=== PATIENT | male | born 1990 | race Caucasian/White ===

== ENCOUNTER 2020-04-04 08:28 | Outpatient (CLI) | payer OTHER, SELFPAY ==
--- NOTE | 2020-04-04 08:15 | XRR_ITS ---
PROCEDURE INFORMATION: Exam: XR Abdomen, 1 View Exam date and time: 04/04/2020 8:50 AM Age: 30 years old Clinical indication: Condition or disease; Kidney or ureter condition; Calculus (stone) in kidney; Additional info: Ureteral stone f/u TECHNIQUE: Imaging protocol: XR of the abdomen. Views: Frontal supine view of the abdomen. 1 View. COMPARISON: CR XR KUB [id number] 08/22/2019 10:29 AM FINDINGS: Gastrointestinal tract: The bowel gas pattern is nonspecific. Air filled large bowel including distal rectal gas. Organs: No calcifications are seen overlying the renal outlines or the expected course of the right or left ureters. No suspicious calcifications within the pelvis. Bones/joints: Unremarkable. XR/XR KUB [id number] IMPRESSION: The bowel gas pattern is nonspecific. Air filled large bowel including distal rectal gas.
== END 2020-04-04 08:29 | disposition home or self-care (01) ==
LOC: RAD 08:33
PROVIDERS: Visit Provider Urology
DX: N20.1 Calculus of ureter (principal)
CPT/HCPCS: 74018; 81001

== ENCOUNTER → 2020-10-15 11:26 | Outpatient (BNVA) | payer OTHER, SELFPAY | PROVIDERS: Visit Provider Nurse Practitioner Family | DX: Z20.828 Contact with and (suspected) exposure to other viral communicable diseases (principal) | CPT/HCPCS: 87635 ==

== ENCOUNTER → 2020-11-20 12:07 | Outpatient (BNVA) | payer OTHER, SELFPAY | PROVIDERS: Visit Provider Nurse Practitioner Family | DX: Z20.822 Contact with and (suspected) exposure to COVID-19 (principal); J06.9 Acute upper respiratory infection, unspecified | CPT/HCPCS: 85025; 87071; 87400; 87635; 87880 ==

== ENCOUNTER 2021-01-16 08:12 | Emergency (ER) | payer OTHER, SELFPAY ==
[2021-01-16 08:21] VITALS: BP 133/76; PULSE 86; RESP 15; TEMP 37.1; O2SAT 100; BMI 33.6
--- NOTE | 2021-01-16 08:46 | ED_ITS ---
Documented by User: BRANDON Pendleton 01/17/21 07:08 HPI - Abdominal Pain General: Chief Complaint: Abdominal Pain Stated Complaint: SEVERE AB PAIN Time Seen by Provider: 01/16/21 08:15 History of Present Illness: HPI narrative: Patient is a 31-year-old male comes to the ED with abdominal pain. Past medical history of kidney stone and diverticulitis. Patient says left lower quadrant abdominal pain started this morning. He currently rates the pain a 5 out of 10 and he explains it as being constant with waves of more severe pain. Patient says this is different than his past diverticulitis pains because it is in the left lower quadrant and not in the right lower quadrant like in the past. Patient has not taken anything for pain today. Denies fever, chills, chest pain, shortness of breath, nausea/vomiting, diarrhea, constipation, blood in the stool, hematuria or dysuria. Patient did state that he had a colonoscopy done within the last year and said they did not see any signs of cancer. Associated Symptoms: Denies chills, constipation, diarrhea, dysuria, fever(s), hematochezia, hematuria, nausea and vomiting Review of Systems Const: Denies: fever(s), chills or fatigue Eyes: Denies: change in vision or eye discomfort ENMT: Denies: throat pain, odynophagia, nasal discharge or nasal congestion Card: Denies: chest pain, palpitations, edema, swelling of feet/ankles, dyspnea on exertion or orthopnea Resp: Denies: dyspnea, productive cough or non-productive cough GI: Reports: abdominal pain (LLQ); Denies: nausea, vomiting, diarrhea, constipation or hematochezia : Denies: flank pain, difficulty urinating, dysuria or hematuria Musc: Denies: neck pain, back pain or extremity swelling Skin/Breast: Denies: rash or new lesions Neuro: Denies: headache(s), numbness in extremities or weakness in extremities PFSH ED PFSH: Medical History Calcium urolithiasis Diverticular disease Ureteral stone Family History Mother Diabetes Other Cancer Social History Smoking and tobacco status: current every day smoker Alcohol intake: current Alcohol intake frequency: few times a month Adopted: No Caregiver/support person: No Lives independently: No Marital status: Current occupational status: employed History of recent travel: No Current gender identity: Male Physical Exam Const: COMMON NORMALS: no acute distress, patient oriented x3, healthy appearing and alert GENERAL APPEARANCE: cooperative and comfortable HENMT: COMMON NORMALS: normocephalic HEAD & SCALP: normocephalic MOUTH: Normal oral and palatal mucosa present THROAT: posterior oropharynx normal and uvula midline Eye: COMMON NORMALS: Equal, round and reactive pupils present PUPIL: Yes Equal, round and reactive pupils present Neck/C-Spine: COMMON NORMALS: supple GENERAL: Yes normal visual inspection Resp: COMMON NORMALS: normal respiratory effort, No retractions, No use of accessory muscles and clear to auscultation bilaterally AUSCULTATION: clear to auscultation bilaterally Cardio: COMMON NORMALS: regular rate, regular rhythm, S1 normal heart sound present, S2 normal heart sound present, No gallops present (Cardio), No clicks present (Cardio), No murmurs present (Cardio) and Peripheral pulses 2+ throughout RATE: regular rate RHYTHM: regular rhythm HEART SOUNDS: S1 normal heart sound present and S2 normal heart sound present PERIPHERAL PULSES: Peripheral pulses 2+ throughout GI: COMMON NORMALS: Normal to inspection, nondistended, normoactive bowel sounds present, Soft to palpation and no masses PALPATION: Yes Soft to palpation and Yes Tenderness to palpation present (GI) Details: LLQ : COMMON NORMALS: Yes no CVA tenderness BLADDER/KIDNEY EXAM: Yes no CVA tenderness Back/Pelvis: COMMON NORMALS: no CVA tenderness Extremity: COMMON NORMALS: normal to inspection Neuro: COMMON NORMALS: patient oriented x3 SENSORIUM/ORIENTATION: Yes alert GAIT: Yes Normal gait present Skin: GENERAL SKIN EXAM: dry skin Course Vital Signs: Vital signs: Vital Signs Temperature 98.7 F 01/16/21 08:21 Pulse Rate 78 01/16/21 11:41 Respiratory Rate 18 01/16/21 11:41 Blood Pressure 112/80 01/16/21 11:41 Pulse Oximetry 99 01/16/21 11:41 MDM - Abdominal Pain Lab Data: Attestation: I reviewed the patient's lab results. Labs: Lab Results 0301/16/21 01/16/21 Range/Units 09:15 09:15 09:15 WBC 12.3 H (4.0-10.0) 10^3/ uL RBC 5.15 (4.1-5.3) 10^6/u L Hgb 16.0 (11.7-16.6) g/dL Hct 47.3 (42.0-52.0) % MCV 91.8 (80-94) fL MCH 31.1 (28.0-34.0) pg MCHC 33.8 (30.0-36.0) g/dL RDW 13.1 (12.1-15.1) % Plt Count 185 (130-400) 10^3/c mm MPV 10.4 (7.4-10.4) fL Neut % (Auto) 83.7 % Lymph % (Auto) 7.3 % [place] % (Auto) 6.6 % Eos % (Auto) 2.0 % Baso % (Auto) 0.2 % Neut # (Auto) 10.27 H (1.8-7.7) 10^3/u L Lymph # (Auto) 0.9 (0.8-4.8) 10^3/u L [place] # (Auto) 0.8 (0.2-0.9) 10^3/u L Eos # (Auto) 0.3 (0.0-0.8) 10^3/u L Baso # (Auto) 0.0 (0.0-0.1) 10^3/u L Nucleated RBC % (a uto) 0 % Nucleated RBCs # 0.0 /100WBC Sodium 138 (136-145) mmol/L Potassium 4.0 (3.5-5.1) mmol/L Chloride 104 (98-107) mmol/L Carbon Dioxide 25 (22-29) mmol/L Anion Gap 13.0 (5-19) BUN 16 (6-20) mg/dL Creatinine 0.8 (0.7-1.2) mg/dL GFR Calculation 111.3 (90-130) mL/min Glucose 87 (65-115) mg/dL Calculated Osmolal ity 287 (285-295) mOsm/k g Calcium 9.3 (8.5-10.5) mg/dL Total Bilirubin 0.6 (0.15-1.2) mg/dL AST 20 (0-40) U/L ALT 20 (0-41) U/L Alkaline Phosphata se 68 (40-130) IU/L Total Protein 7.9 (6.6-8.7) g/dL Albumin 4.5 (3.5-5.2) g/dL Globulin 3.4 (1.3-4.6) g/dL Lipase 28 (13-60) U/L Urine Color Straw (Yellow) Urine Appearance Clear (CLEAR) Urine pH 7 (5-7) Ur Specific Gravit y 1.010 (1.005-1.030) Urine Protein Neg (Negative) Urine Glucose (UA) Norm (Normal) Urine Ketones Negative (Negative) Urine Blood Neg (Negative) Urine Nitrate Negative (Negative) Urine Bilirubin Neg (Negative) Urine Urobilinogen Norm (Negative) mg/dL Ur Leukocyte Natasha ase Negative (Negative) Urine RBC None (0-2) /hpf Urine WBC None (0-5) /hpf Ur Squamous Epith Cells 0-4 H (0-5) /hpf Amorphous Sediment Not Reportable Urine Bacteria Trace (NONE) /hpf Imaging Data ^: CT Abd/Pel: Attestation: I personally reviewed and interpreted this imaging study as follows: Radiologist's impression: [place] [address] CT Scan Report Signed Patient: Brad Perez Unit #: [id number] : 1990 Age/Sex: 31 / M ADM Date: 01/16/21 Loc: ER Room/Bed: Attending Dr: Ordering Provider/Ordering MD: Michael Martinez Date of Service: 01/16/21 Procedure(s): CT abdomen pelvis w con* [id number] Accession Number(s): [id number] Report Number: [id number] WS: [id number] CT ABDOMEN AND PELVIS WITH CONTRAST HISTORY: LLQ pain TECHNIQUE: Imaging performed of the abdomen and pelvis with IV contrast. Single phase imaging of the abdomen. Coronal and sagittal reformats are submitted. All CT scans at [facility] use at least one of these dose optimization techniques: automated exposure control; mA and/or kV adjustment per patient size (includes targeted exams where dose is matched to clinical indication); or iterative reconstruction. IV CONTRAST: Omnipaque 300; 95 mL IV. Oral contrast: No DLP: 1981.38 mGy.cm COMPARISON: 08/06/2019 Lower thorax: Benign granuloma LEFT lower lobe. Heart is normal size. No hiatal hernia. Liver/biliary system: Normal size with no intrahepatic dilatation. Gallbladder: Normal. No gallstones or wall thickening. No pericholecystic fluid. Pancreas: Normal. Spleen: Spleen is slightly enlarged at 14.5 cm. Minimal increase in size since the prior CT. Adrenal glands: Normal. Right kidney: Normal. Left kidney: Normal. Aorta: Normal. Lymphadenopathy: There are several small retroperitoneal, shoddy type lymph nodes. Lymph nodes are much less than 1 cm. Free fluid: Small amount of free fluid in the pelvis. GI tract: Markedly abnormal appearance of the sigmoid colon. Over a length of 10 cm there is severe wall thickening and narrowing of the lumen with numerous diverticula. Areas of decreased attenuation in the peripheral enhancement within the wall of the sigmoid suggests developing abscesses within the wall. Phlegmonous development measures 2.4 x 1.6 cm. There are a few adjacent small lymph nodes and pericolonic infiltration into the fat. No free air. Abdominal wall: Unremarkable abdominal wall. No hernia. Pelvis: Small amount of free fluid in the pelvis. Bladder is well distended. Bones: Unremarkable. CT/CT abdomen pelvis w con* [id number] IMPRESSION: 1. Markedly abnormal appearance to 10 cm of the sigmoid. Progression of luminal narrowing, wall thickening and diverticular disease. This may be case of acute diverticulitis superimposed on chronic changes but infiltrating underlying neoplasm is also very likely if this has not been excluded. Severe wall thickening with phlegmonous changes suspicious for developing abscesses in the wall. At this time there is no drainable collection. Underlying colonic needs to be excluded. 2. Small lymph nodes and pericolonic fat stranding may be due to infection or neoplasm. 3. Negative adrenal glands. 4. No liver abnormality. 5. Minimal enlargement of the spleen. 6. Shoddy retroperitoneal lymph nodes. Notified BRANDON Pendleton at 01/16/2021 9:58 AM. Dictated By: Shira Andersen DO Signed By: Shira Andersen DO Signed Date/Time: 01/16/21 1002 DD/ 0952 Discharge Plan Discharge Patient Disposition: Left Against Medical Advice Clinical Impression: Abscess of sigmoid colon due to diverticulitis Condition: Stable Prescriptions: New Augmentin 875-125 mg tablet 1 tab PO BID Qty: 20 RF: 0 No Action famotidine [Pepcid AC] 20 mg tablet 20 mg PO DAILY PRN (Reason: Heartburn) RF: 0 Headache Relief ([id number]) 250-250-65 mg tablet 1 tab PO Q6H PRN (Reason: Headache) RF: 0 Discharge Orders: Discharge ED (Routine); Ordered 01/16/21 Ordered By: Charles Coronado Activity Restrictions/Additional Instructions: You have elected to leave AGAINST MEDICAL ADVICE. Recommend the you be admitted to the hospital. If this progresses you could become seriously ill that might even lead to . Optimal treatment would be admission with IV antibiotics and not eating. Prescription for Augmentin was given since she refused to be admitted. In conjunction of that would recommend that you maintain a clear liquid diet. If you wish to return we will gladly reevaluate and provide all needed cares. If you prefer to be seen at another hospital recommend that you proceed directly there from here. Sign Out Sign Out Data: Patient Sign Out occurred on 01/16/21 at 11:21. Patient's care was discussed, and care was transferred from to Charles Coronado DO. Coding Level of Care Code ED [employer] for Chg Fwd Exam Comprehensive Documented by User: Charles Coronado DO 01/17/21 07:06 HPI - Abdominal Pain General: Chief Complaint: Abdominal Pain Stated Complaint: SEVERE AB PAIN Time Seen by Provider: 01/16/21 08:15 PFSH ED PFSH: Medical History Calcium urolithiasis Diverticular disease Ureteral stone Family History Mother Diabetes Other Cancer Social History Smoking and tobacco status: current every day smoker Alcohol intake: current Alcohol intake frequency: few times a month Adopted: No Caregiver/support person: No Lives independently: No Marital status: Current occupational status: employed History of recent travel: No Current gender identity: Male Course Vital Signs: Vital signs: Vital Signs Temperature 98.7 F 01/16/21 08:21 Pulse Rate 78 01/16/21 11:41 Respiratory Rate 18 01/16/21 11:41 Blood Pressure 112/80 01/16/21 11:41 Pulse Oximetry 99 01/16/21 11:41 MDM - Abdominal Pain MDM Narrative: Medical decision making narrative: Patient initially seen by midlevel has a slightly elevated white count. On CT he was found to have sigmoid diverticulitis with a potential forming abdomen abscess. BRANDON Martinez discussed the case with me we started him on Zosyn cultures were drawn. Were making arrangements for admission. I was asked by nursing staff to come to see the patient as he was quite angry. He felt that we were using the wrong antibiotic and infusing it at the wrong rate. He does not believe he is as sick as he had been told and wants to leave. Discussed with him he has on CT developing abscess and requires IV antibiotics and GI rest he does not agree wit h that diagnosis and wishes to leave AMA advised patient this has a plot possibility to be a life-threatening illness if not handled appropriately he expresses understanding he says he is fully aware of all of these things and wishes to leave anyway he was advised he can return at any time if he wishes. Lab Data: Labs: Lab Results 01/16/21 01/16/21 01/16/21 Range/Units 09:15 09:15 09:15 WBC 12.3 H (4.0-10.0) 10^3/ uL RBC 5.15 (4.1-5.3) 10^6/u L Hgb 16.0 (11.7-16.6) g/dL Hct 47.3 (42.0-52.0) % MCV 91.8 (80-94) fL MCH 31.1 (28.0-34.0) pg MCHC 33.8 (30.0-36.0) g/dL RDW 13.1 (12.1-15.1) % Plt Count 185 (130-400) 10^3/c mm MPV 10.4 (7.4-10.4) fL Neut % (Auto) 83.7 % Lymph % (Auto) 7.3 % [place] % (Auto) 6.6 % Eos % (Auto) 2.0 % Baso % (Auto) 0.2 % Neut # (Auto) 10.27 H (1.8-7.7) 10^3/u L Lymph # (Auto) 0.9 (0.8-4.8) 10^3/u L [place] # (Auto) 0.8 (0.2-0.9) 10^3/u L Eos # (Auto) 0.3 (0.0-0.8) 10^3/u L Baso # (Auto) 0.0 (0.0-0.1) 10^3/u L Nucleated RBC % (a uto) 0 % Nucleated RBCs # 0.0 /100WBC Sodium 138 (136-145) mmol/L Potassium 4.0 (3.5-5.1) mmol/L Chloride 104 (98-107) mmol/L Carbon Dioxide 25 (22-29) mmol/L Anion Gap 13.0 (5-19) BUN 16 (6-20) mg/dL Creatinine 0.8 (0.7-1.2) mg/dL GFR Calculation 111.3 (90-130) mL/min Glucose 87 (65-115) mg/dL Calculated Osmolal ity 287 (285-295) mOsm/k g Calcium 9.3 (8.5-10.5) mg/dL Total Bilirubin 0.6 (0.15-1.2) mg/dL AST 20 (0-40) U/L ALT 20 (0-41) U/L Alkaline Phosphata se 68 (40-130) IU/L Total Protein 7.9 (6.6-8.7) g/dL Albumin 4.5 (3.5-5.2) g/dL Globulin 3.4 (1.3-4.6) g/dL Lipase 28 (13-60) U/L Urine Color Straw (Yellow) Urine Appearance Clear (CLEAR) Urine pH 7 (5-7) Ur Specific Gravit y 1.010 (1.005-1.030) Urine Protein Neg (Negative) Urine Glucose (UA) Norm (Normal) Urine Ketones Negative (Negative) Urine Blood Neg (Negative) Urine Nitrate Negative (Negative) Urine Bilirubin Neg (Negative) Urine Urobilinogen Norm (Negative) mg/dL Ur Leukocyte Natasha ase Negative (Negative) Urine RBC None (0-2) /hpf Urine WBC None (0-5) /hpf Ur Squamous Epith Cells 0-4 H (0-5) /hpf Amorphous Sediment Not Reportable Urine Bacteria Trace (NONE) /hpf Discharge Plan Discharge Patient Disposition: Left Against Medical Advice Clinical Impression: Abscess of sigmoid colon due to diverticulitis Condition: Stable Prescriptions: New Augmentin 875-125 mg tablet 1 tab PO BID Qty: 20 RF: 0 No Action famotidine [Pepcid AC] 20 mg tablet 20 mg PO DAILY PRN (Reason: Heartburn) RF: 0 Headache Relief ([id number]) 250-250-65 mg tablet 1 tab PO Q6H PRN (Reason: Headache) RF: 0 Discharge Orders: Discharge ED (Routine); Ordered 01/16/21 Ordered By: Charles Coronado Activity Restrictions/Additional Instructions: You have elected to leave AGAINST MEDICAL ADVICE. Recommend the you be admitted to the hospital. If this progresses you could become seriously ill that might even lead to . Optimal treatment would be admission with IV antibiotics and not eating. Prescription for Augmentin was given since she refused to be admitted. In conjunction of that would recommend that you maintain a clear liquid diet. If you wish to return we will gladly reevaluate and provide all needed cares. If you prefer to be seen at another hospital recommend that you proceed directly there from here. Sign Out Sign Out Data: Patient Sign Out occurred on 01/16/21 at 11:21. Patient's care was discussed, and care was transferred from to Charles Coronado DO. Coding Level of Care Code ED Twenty [employer]er for Stepan Fwmarcia Exam Comprehensive
--- NOTE | 2021-01-16 08:47 | CT_ITS ---
WS: [id number] CT ABDOMEN AND PELVIS WITH CONTRAST HISTORY: LLQ pain TECHNIQUE: Imaging performed of the abdomen and pelvis with IV contrast. Single phase imaging of the abdomen. Coronal and sagittal reformats are submitted. All CT scans at [facility] use at least one of these dose optimization techniques: automated exposure control; mA and/or kV adjustment per patient size (includes targeted exams where dose is matched to clinical indication); or iterativ e reconstruction. IV CONTRAST: Omnipaque 300; 95 mL IV. Oral contrast: No DLP: 1981.38 mGy.cm COMPARISON: 08/06/2019 Lower thorax: Benign granuloma LEFT lower lobe. Heart is normal size. No hiatal hernia. Liver/biliary system: Normal size with no intrahepatic dilatation. Gallbladder: Normal. No gallstones or wall thickening. No pericholecystic fluid. Pancreas: Normal. Spleen: Spleen is slightly enlarged at 14.5 cm. Minimal increase in size since the prior CT. Adrenal glands: Normal. Right kidney: Normal. Left kidney: Normal. Aorta: Normal. Lymphadenopathy: There are several small retroperitoneal, shoddy type lymph nodes. Lymph nodes are mu ch less than 1 cm. Free fluid: Small amount of free fluid in the pelvis. GI tract: Markedly abnormal appearance of the sigmoid colon. Over a length of 10 cm there is severe w all thickening and narrowing of the lumen with numerous diverticula. Areas of decreased attenuation i n the peripheral enhancement within the wall of the sigmoid suggests developing abscesses within the wall. Phlegmonous development measures 2.4 x 1.6 cm. There are a few adjacent small lymph nodes and p ericolonic infiltration into the fat. No free air. Abdominal wall: Unremarkable abdominal wall. No hernia. Pelvis: Small amount of free fluid in the pelvis. Bladder is well distended. Bones: Unremarkable. CT/CT abdomen pelvis w con* [id number] IMPRESSION: 1. Markedly abnormal appearance to 10 cm of the sigmoid. Progression of lumina l narrowing, wall thickening and diverticular disease. This may be case of acut e diverticulitis superimposed on chronic changes but infiltrating underlying ne oplasm is also very likely if this has not been excluded. Severe wall thickenin g with phlegmonous changes suspicious for developing abscesses in the wall. At this time there is no drainable collection. Underlying colonic needs to be excl uded. 2. Small lymph nodes and pericolonic fat stranding may be due to infection or neoplasm. 3. Negative adrenal glands. 4. No liver abnormality. 5. Minimal enlargement of the spleen. 6. Shoddy retroperitoneal lymph nodes. Notified BRANDON Pendleton at 01/16/2021 9:58 AM.
[2021-01-16] MEDS: sodium chloride 0.9% 1,000 ML 999 ML IV (09:16)
[2021-01-16 09:26] LABS: Basophils % 0.2 %; Eosinophils # 0.3 10^3/uL (0.0-0.8); Hematocrit 47.3 % (42.0-52.0); Lymphocytes # 0.9 10^3/uL (0.8-4.8); Lymphocytes % 7.3 %; Mean Corpuscular HGB Conc 33.8 g/dL (30.0-36.0); Mean Corpuscular Hemoglobin 31.1 pg (28.0-34.0); Mean Corpuscular Volume 91.8 fL (80-94); Mean Platelet Volume 10.4 fL (7.4-10.4); Monocytes # 0.8 10^3/uL (0.2-0.9); Monocytes % 6.6 %; Neutrophils # 10.27 10^3/uL (1.8-7.7); Neutrophils % 83.7 %; Nucleated Red Blood Cells % 0 %; Platelet Count 185 10^3/cmm (130-400); Red Blood Count 5.15 10^6/uL (4.1-5.3); Red Cell Distribution Width 13.1 % (12.1-15.1); White Blood Count 12.3 10^3/uL (4.0-10.0)
[2021-01-16 09:41] VITALS: RESP 18
[2021-01-16] MEDS: iohexol 300 mg/mL 100 mL Btl IV (09:45)
[2021-01-16 09:50] LABS: Bilirubin Urine Neg (Negative); Blood Urine Neg (Negative); Glucose Urine UA Norm (Normal); Ketones Urine Negative (Negative); Leukocyte Esterase Urine Negative (Negative); Nitrate Urine Negative (Negative); Protein Urine Neg (Negative); Urine Appearance Clear (CLEAR); Urine Color Straw (Yellow); Urobilinogen Urine Norm (Negative); pH Urine 7 (5-7)
[2021-01-16 09:51] LABS: Alanine Aminotransferase 20 U/L (0-41); Albumin Level 4.5 g/dL (3.5-5.2); Alkaline Phosphatase 68 IU/L (40-130); Blood Urea Nitrogen 16 mg/dL (6-20); Calcium 9.3 mg/dL (8.5-10.5); Carbon Dioxide 25 mmol/L (22-29); Chloride 104 mmol/L (98-107); Globulin 3.4 g/dL (1.3-4.6); Glomerular Filtration Rate 111.3 mL/min (90-130); Glucose 87 mg/dL (65-115); Lipase 28 U/L (13-60); Osmolality Calculated 287 mOsm/kg (285-295); Sodium 138 mmol/L (136-145); Total Bilirubin 0.6 mg/dL (0.15-1.2); Total Protein 7.9 g/dL (6.6-8.7)
[2021-01-16 09:54] LABS: Add Urine Culture? No; Bacteria Urine TRACE /hpf; Squamous Epithelial Cell Urine 0-4 /hpf (0-5)
[2021-01-16 10:05] LABS: Aspartate Amino Transferase 20 U/L (0-40)
[2021-01-16] MEDS: piperacillin-tazobactam 3.375 GM in sodium chloride 0.9% (plus) 50 ML IV (11:06)
[2021-01-16 11:41] VITALS: BP 112/80; PULSE 78; RESP 18; O2SAT 99
== END 2021-01-16 11:53 | disposition left against medical advice (07) ==
PROVIDERS: Physician Assistant; Emergency Provider Family Medicine
DX: K57.20 Diverticulitis of large intestine with perforation and abscess without bleeding (principal); Z53.21 Procedure and treatment not carried out due to patient leaving prior to being seen by health care provider; F17.210 Nicotine dependence, cigarettes, uncomplicated
CPT/HCPCS: 36415; 74177; 80053; 81001; 83690; 85025; 87040; 96365; 99283; J2543; J7030; Q9967

== ENCOUNTER → 2021-02-09 10:44 | Outpatient (BNVA) | payer OTHER, SELFPAY | PROVIDERS: Visit Provider Nurse Practitioner Family | DX: Z20.822 Contact with and (suspected) exposure to COVID-19 (principal) | CPT/HCPCS: 87635 ==

== ENCOUNTER 2023-11-10 20:00 | Emergency (ER) | payer SELFPAY ==
[2023-11-10 20:00] VITALS: BP 137/88; PULSE 91; RESP 18; TEMP 36.8; O2SAT 95; BMI 34.2
--- NOTE | 2023-11-10 20:06 | CTR_ITS ---
PROCEDURE INFORMATION: Exam: CT Abdomen And Pelvis With Contrast Exam date and time: 11/10/2023 9:12 PM Age: 33 years old Clinical indication: Abdominal pain; Localized; Left lower quadrant (llq); Additional info: Llq pain TECHNIQUE: Imaging protocol: Computed tomography of the abdomen and pelvis with contrast. Radiation optimization: All CT scans at this facility use at least one of these dose optimization techniques: automated exposure control; mA and/or kV adjustment per patient size (includes targeted exams where dose is matched to clinical indication); or iterative reconstruction. Contrast material: OMNI 350; Contrast volume: 100 ml; Contrast route: INTRAVENOUS (IV); REPORTING DATA: Count of CT and Cardiac NM exams in prior 12 months: This patient has received 0 known CTs and 0 known cardiac nuclear medicine studies in the 12 months prior to the current study. COMPARISON: CT abdomen pelvis w con* [id number] 01/16/2021 9:57 AM RADIATION DOSE METRICS: Total DLP (mGy-cm): 1133.11 FINDINGS: Lungs: Dependent atelectasis in the lung bases. Liver: Small amount of gas in the superior peripheral liver is most likely portal venous gas. No mass. Gallbladder and bile ducts: Normal. No calcified stones. No ductal dilation. Pancreas: Normal. No ductal dilation. Spleen: Normal. No splenomegaly. Adrenal glands: Normal. No mass. Kidneys and ureters: Normal. No hydronephrosis. Stomach and bowel: Diverticulosis of the descending and sigmoid colon. There is segmental irregular wall thickening in the proximal sigmoid colon without significant fat stranding. Gaseous distention of the colon with fluid in the proximal colon. Gaseous and distention of multiple loops of small bowel measuring up to 3.6 cm. Appendix: The appendix is visualized and is normal. Intraperitoneal space: Unremarkable. No free air. No significant fluid collection. Vasculature: No definite source of the gas or pneumatosis is identified. Lymph nodes: Unremarkable. No enlarged lymph nodes. Urinary bladder: Unremarkable as visualized. Reproductive: Unremarkable as visualized. Bones/joints: Mild degenerative changes of the spine. No acute fracture. Soft tissues: Unremarkable. CT/CT abdomen pelvis w con* [id number] IMPRESSION: 1. Irregular wall thickening in the proximal sigmoid colon, in the same location as on the prior study. This could represent focal colitis or less likely diverticulitis. An underlying malignant neoplastic process is not excluded, and follow-up with colonoscopy is recommended. 2. Gas in the peripheral liver is most likely portal venous gas. A definite source for the gas is not identified. No pneumatosis intestinalis visualized. 3. Diverticulosis of the colon. 4. Gaseous and fluid distention of the small and large bowel most likely represents ileus or enterocolitis.
--- NOTE | 2023-11-10 20:07 | ED_ITS ---
HPI - Abdominal Pain 2 General: Chief Complaint: Abdominal Pain Stated Complaint: abd pain Time Seen by Provider: 11/10/23 20:03 Source: patient Mode of arrival: ambulatory Limitations: no limitations History of Present Illness: 33-year-old male states he had a history diverticulitis states that he has been having left lower quadrant pain that started this morning. States that his pain is sharp in nature earlier today is an 8 out of 10 he received 1 of Dilaudid route states its improved denies any vomiting or diarrhea denies any fevers. Associated Symptoms: Denies chills, diarrhea, dysuria, fever(s), nausea and vomiting Review of Systems 2 Const: Denies: fever(s), chills, body aches or change in appetite ENMT: Denies: throat pain or dental pain Card: Denies: chest pain Resp: Denies: dyspnea GI: Reports: abdominal pain; Denies: nausea, vomiting or diarrhea : Denies: dysuria Musc: Denies: neck pain or back pain Skin/Breast: Denies: rash Neuro: Denies: headache(s) PFSH ED 2 PFSH: Medical History (Updated 11/10/23 @ 22:07 by Lauro Montilla MD) Diverticular disease Calcium urolithiasis Ureteral stone Family History Mother Diabetes Other Cancer Social History Smoking and tobacco/nicotine status: current every day tobacco/nicotine user Alcohol intake: current Alcohol intake frequency: few times a month Substance/Drug Use: unknown Adopted: No Caregiver/support person: No Lives independently: No Marital status: Current occupational status: employed Current gender identity: Male Physical Exam 2 Const: COMMON NORMALS: no acute distress, patient oriented x3 and healthy appearing HENMT: COMMON NORMALS: normocephalic and atraumatic HEAD & SCALP: n ormocephalic and atraumatic Neck/C-Spine: COMMON NORMALS: full ROM and supple Chest: COMMONS NORMALS: normal inspection of the chest Resp: COMMON NORMALS: normal respiratory effort Cardio: COMMON NORMALS: regular rate, regular rhythm and No murmurs present (Cardio) RATE: regular rate RHYTHM: regular rhythm GI: COMMON NORMALS: Normal to inspection, nondistended, normoactive bowel sounds present, Soft to palpation and no masses PALPATION: Yes Soft to palpation and Yes Tenderness to palpation present (GI) Details: LLQ Extremity: COMMON NORMALS: normal to inspection and full ROM Neuro: COMMON NORMALS: patient oriented x3, moves all extremities and no focal motor deficits Psych: COMMON NORMALS: mental status grossly normal, Normal thought process present and cooperative THOUGHT PROCESS: Normal thought process present Skin: COMMON NORMALS: no rashes or lesions noted and no wounds GENERAL SKIN EXAM: no rashes or lesions noted Course 2 Vital Signs: Vital signs: Vital Signs Temperature 98.2 F 11/10/23 20:00 Pulse Rate 91 11/10/23 20:00 Respiratory Rate 18 11/10/23 20:00 Blood Pressure 137/88 11/10/23 20:00 Pulse Oximetry 95 11/10/23 20:00 Oxygen Delivery Me thod Room Air 11/10/23 20:00 MDM - Abdominal Pain Medical Decision Making Patient presents with abdominal pain CT shows a colitis then informed him that he needs a colonoscopy we will get him follow-up with surgery we will place him on antibiotics along with pain meds he is to follow-up with surgeon return if worsening. Medical Records I reviewed the patient's medical records. Lab Data I reviewed the patient's lab results. 11/10/23 20:14 11/10/23 20:14 Labs/Radiology: Radiology Impressions Abdomen/Pelvis CT 11/10/23 20:06 IMPRESSION: 1. Irregular wall thickening in the proximal sigmoid colon, in the same location as on the prior study. This could represent focal colitis or less likely diverticulitis. An underlying malignant neoplastic process is not excluded, and follow-up with colonoscopy is recommended. 2. Gas in the peripheral liver is most likely portal venous gas. A definite source for the gas is not identified. No pneumatosis intestinalis visualized. 3. Diverticulosis of the colon. 4. Gaseous and fluid distention of the small and large bowel most likely represents ileus or enterocolitis. Laboratory Results WBC 8.85 10^3/uL (3.29-11.43) 11/10/23 20:14 RBC 5.96 10^6/uL (3.85-5.65) H 11/10/23 20:14 Hgb 18.40 g/dL (11.27-16.99) H 11/10/23 20:14 Hct 52.3 % (37-53) 11/10/23 20:14 MCV 87.8 fl (82-101) 11/10/23 20:14 MCH 30.9 pg (27-33) 11/10/23 20:14 MCHC 35.2 g/dL (30-55) 11/10/23 20:14 RDW 12.3 % (12.1-15.1) 11/10/23 20:14 Plt Count 225 10^3/cmm (157-399) 11/10/23 20:14 MPV 9.8 fL (7.4-10.4) 11/10/23 20:14 Neut % (Auto) 79.6 % 11/10/23 20:14 Lymph % (Auto) 9.7 % 11/10/23 20:14 [place] % (Auto) 7.5 % 11/10/23 20:14 Eos % (Auto) 2.7 % 11/10/23 20:14 Baso % (Auto) 0.3 % 11/10/23 20:14 Neut # (Auto) 7.04 10^3/uL (1.8-7.7) 11/10/23 20:14 Lymph # (Auto) 0.9 10^3/uL (0.8-4.8) 11/10/23 20:14 [place] # (Auto) 0.7 10^3/uL (0.2-0.9) 11/10/23 20:14 Eos # (Auto) 0.2 10^3/uL (0.0-0.8) 11/10/23 20:14 Baso # (Auto) 0.0 10^3/uL (0.0-0.1) 11/10/23 20:14 Nucleated RBC % (auto) 0 % 11/10/23 20:14 Nucleated RBCs # 0.0 /100WBC 11/10/23 20:14 Sodium 134 mmol/L (136-145) L 11/10/23 20:14 Potassium 4.0 mmol/L (3.5-5.1) 11/10/23 20:14 Chloride 102 mmol/L (98-107) 11/10/23 20:14 Carbon Dioxide 22 mmol/L (22-29) 11/10/23 20:14 Anion Gap 14.0 (5-19) 11/10/23 20:14 BUN 14 mg/dL (6-20) 11/10/23 20:14 Creatinine 1.1 mg/dL (0.7-1.2) 11/10/23 20:14 GFR Calculation 76.2 mL/min (90-130) L 11/10/23 20:14 Glucose 113 mg/dL (65-115) 11/10/23 20:14 Calculated Osmolality 279 mOsm/kg (285-295) L 11/10/23 20:14 Calcium 9.5 mg/dL (8.5-10.5) 11/10/23 20:14 Total Bilirubin 0.7 mg/dL (0.15-1.2) 11/10/23 20:14 AST 15 U/L (0-40) 11/10/23 20:14 ALT 27 U/L (0-41) 11/10/23 20:14 Alkaline Phosphatase 85 U/L (40-130) 11/10/23 20:14 Total Protein 7.9 g/dL (6.6-8.7) 11/10/23 20:14 Albumin 4.4 g/dL (3.5-5.2) 11/10/23 20:14 Globulin 3.5 g/dL (1.3-4.6) 11/10/23 20:14 Lipase 34 U/L (13-60) 11/10/23 20:14 Urine Color Dark yellow (Yellow) 11/10/23 21:00 Urine Appearance Clear (CLEAR) 11/10/23 21:00 Urine pH 5 (5-7) 11/10/23 21:00 Ur Specific [place] 1.025 (1.005-1.030) 11/10/23 21:00 Urine Protein Neg (Negative) 11/10/23 21:00 Urine Glucose (UA) Norm (Normal) 11/10/23 21:00 Urine Ketones Negative (Negative) 11/10/23 21:00 Urine Blood Neg (Negative) 11/10/23 21:00 Urine Nitrate Negative (Negative) 11/10/23 21:00 Urine Bilirubin 1+ (Negative) H 11/10/23 21:00 Urine Urobilinogen 1 mg/dL (Negative) H 11/10/23 21:00 Ur Leukocyte Esterase Negative (Negative) 11/10/23 21:00 All radiology interpretation(s) finalized by discharge Discharge Plan Discharge Patient Disposition: Home Clinical Impression: Colitis Condition: Stable Prescriptions: New hydrocodone-acetaminophen 5-325 mg tablet 1 tab PO Q6H PRN (Reason: pain) Qty: 14 0RF metronidazole 500 mg tablet 500 mg PO Q8H 7 Days Qty: 21 0RF ciprofloxacin HCl [Cipro] 500 mg tablet 500 mg PO BID Qty: 14 0RF ondansetron 4 mg tablet,disintegrating 4 mg PO Q6H PRN (Reason: nausea and vomiting) Qty: 14 0RF No Action famotidine [Pepcid AC] 20 mg tablet 20 mg PO DAILY PRN (Reason: Heartburn) Headache Relief ([id number]) 250-250-65 mg tablet 1 tab PO Q6H PRN (Reason: Headache) Discharge Orders: Discharge ED (Routine); Ordered 11/10/23 Ordered By: Lauro Montilla Referrals: Keenan Garcia MD [Physician] - 1-3 days Discharge Diet: Advance as tolerated Discharge Activity: Resume usual activity Patient Instructions: Colitis (ED), Opioid Safety Coding Level of Care Code ED Automatic Head Sawyer for Stepan Washburn
[2023-11-10 20:19] LABS: Basophils % 0.3 %; Eosinophils # 0.2 10^3/uL (0.0-0.8); Eosinophils % 2.7 %; Hematocrit 52.3 % (37-53); Lymphocytes # 0.9 10^3/uL (0.8-4.8); Lymphocytes % 9.7 %; Mean Corpuscular HGB Conc 35.2 g/dL (30-55); Mean Corpuscular Hemoglobin 30.9 pg (27-33); Mean Corpuscular Volume 87.8 fl (82-101); Mean Platelet Volume 9.8 fL (7.4-10.4); Monocytes # 0.7 10^3/uL (0.2-0.9); Monocytes % 7.5 %; Neutrophils # 7.04 10^3/uL (1.8-7.7); Neutrophils % 79.6 %; Nucleated Red Blood Cells % 0 %; Platelet Count 225 10^3/cmm (157-399); Red Blood Count 5.96 10^6/uL (3.85-5.65); Red Cell Distribution Width 12.3 % (12.1-15.1); White Blood Count 8.85 10^3/uL (3.29-11.43)
[2023-11-10] MEDS: sodium chloride 0.9% 1,000 ML 999 ML IV (20:20)
[2023-11-10 20:36] LABS: Alanine Aminotransferase 27 U/L (0-41); Albumin Level 4.4 g/dL (3.5-5.2); Alkaline Phosphatase 85 U/L (40-130); Aspartate Amino Transferase 15 U/L (0-40); Blood Urea Nitrogen 14 mg/dL (6-20); Calcium 9.5 mg/dL (8.5-10.5); Carbon Dioxide 22 mmol/L (22-29); Chloride 102 mmol/L (98-107); Globulin 3.5 g/dL (1.3-4.6); Glomerular Filtration Rate 76.2 mL/min (90-130); Glucose 113 mg/dL (65-115); Lipase 34 U/L (13-60); Osmolality Calculated 279 mOsm/kg (285-295); Sodium 134 mmol/L (136-145); Total Bilirubin 0.7 mg/dL (0.15-1.2); Total Protein 7.9 g/dL (6.6-8.7)
[2023-11-10 21:03] LABS: Add Urine Microscopic? NO; Charge for UA Resulting for Rev
[2023-11-10] MEDS: iohexol 350 mg/mL 500 mL Btl (per mL) IV (21:14)
[2023-11-10 21:19] LABS: Bilirubin Urine 1+ (Negative); Blood Urine Neg (Negative); Glucose Urine UA Norm (Normal); Ketones Urine Negative (Negative); Leukocyte Esterase Urine Negative (Negative); Nitrate Urine Negative (Negative); Protein Urine Neg (Negative); Specific Gravity, Urine 1.025 (1.005-1.030); Urine Appearance Clear (CLEAR); Urine Color Dark Yellow (Yellow); Urobilinogen Urine 1 mg/dL (Negative); pH Urine 5 (5-7)
--- NOTE | 2023-11-11 11:02 | DCPLANNER ---
Message was sent to general surgery on 11/11/23. Clinic to contact patient
== END 2023-11-10 23:42 | disposition home or self-care (01) ==
PROVIDERS: Emergency Provider Emergency Medicine
DX: K52.9 Noninfective gastroenteritis and colitis, unspecified (principal); K57.30 Diverticulosis of large intestine without perforation or abscess without bleeding; Z72.0 Tobacco use
CPT/HCPCS: 36415; 74177; 80053; 81003; 83690; 85025; 99285; J7030; Q9967

== ENCOUNTER 2024-01-05 11:11 | Inpatient (IN) | payer SELFPAY ==
[2024-01-05] VITALS (9 sets, daily range): BP systolic 106–146; BP diastolic 64–84; PULSE 67–90; RESP 15–25; TEMP 36.6; O2SAT 93–95; BMI 34.9
[2024-01-05 11:49] LABS: Basophils % 0.5 %; Eosinophils # 0.3 10^3/uL (0.0-0.8); Hematocrit 47.7 % (37-53); Lymphocytes # 1.2 10^3/uL (0.8-4.8); Lymphocytes % 14.1 %; Mean Corpuscular Volume 88.5 fl (82-101); Mean Platelet Volume 9.6 fL (7.4-10.4); Monocytes # 0.8 10^3/uL (0.2-0.9); Monocytes % 9.9 %; Neutrophils # 6.08 10^3/uL (1.8-7.7); Neutrophils % 72.1 %; Nucleated Red Blood Cells % 0 %; Platelet Count 229 10^3/cmm (157-399); Red Blood Count 5.39 10^6/uL (3.85-5.65); Red Cell Distribution Width 12.4 % (12.1-15.1); White Blood Count 8.42 10^3/uL (3.29-11.43)
[2024-01-05 12:09] LABS: Alanine Aminotransferase 26 U/L (0-41); Alkaline Phosphatase 99 U/L (40-130); Anion Gap 18.2 (5-19); Aspartate Amino Transferase 17 U/L (0-40); Blood Urea Nitrogen 10 mg/dL (6-20); Calcium 9.3 mg/dL (8.5-10.5); Carbon Dioxide 22 mmol/L (22-29); Chloride 99 mmol/L (98-107); Creatinine Clr Calc Pharmacy 127.3003; Globulin 4.3 g/dL (1.3-4.6); Glomerular Filtration Rate 76.2 mL/min (90-130); Glucose 123 mg/dL (65-115); Lipase 30 U/L (13-60); Osmolality Calculated 280 mOsm/kg (285-295); Potassium 4.2 mmol/L (3.5-5.1); Sodium 135 mmol/L (136-145); Total Bilirubin 0.6 mg/dL (0.15-1.2); Total Protein 8.3 g/dL (6.6-8.7)
--- NOTE | 2024-01-05 12:18 | CT_ITS ---
WS: [id number] CT ABDOMEN PELVIS TECHNIQUE: Noncontrast CT of the abdomen and pelvis with coronal and sagittal reformatted images. CLINICAL INFORMATION: flank pain COMPARISON: CT 11/10/2023 DLP: 1326.[address] scans at [facility] use at least one of these dose optimization techniques: automated e xposure control; mA and/or kV adjustment per patient size (includes targeted exams where dose is matc hed to clinical indication); or iterative reconstruction. FINDINGS: Subsegmental atelectasis in the lung bases with compressive atelectasis RIGHT lower lobe. Subsegmenta l atelectasis in the lingula. Calcified granuloma LEFT lower lobe. Noncontrast liver is normal. Normal noncontrast spleen. Normal GE junction. Air-fluid level in the st omach. Fatty atrophy of the pancreas. Normal gallbladder. Adrenal glands are normal. No hydronephrosi s in either kidney. Normal appendix in the RIGHT lower quadrant. Normal caliber abdominal aorta .Again seen is irregular wall thickening in the proximal sigmoid colon LEFT lower quadrant similar to previous with associated luminal narrowing. Slight surrounding induration. Recommend correlation for diverticulitis or colitis and recommend follow-up with colonoscopy as previously recommended. Neopla stic process is not excluded. This was also present on the 01/16/2021 study with more surrounding indur ation at that time IMPRESSION: 1. No obstructing renal or ureteral calculi. 2. Normal appendix. 3. Subsegmental atelectasis in the lung bases. 4. Again seen is irregular wall thickening in the proximal sigmoid colon LEFT lower quadrant similar to previous. Slight surrounding induration. Recommend correlation for diverticulitis or colitis and recommend follow-up with colonoscopy as previously recommended. Neoplastic process is not excluded. Notified Charles Coronado DO at 01/05/2024 1:57 PM.
--- NOTE | 2024-01-05 12:18 | ED_ITS ---
HPI - Abdominal Pain 2 General: Chief Complaint: Abdominal Pain Stated Complaint: abd pain Time Seen by Provider: 01/05/24 12:17 Source: patient Mode of arrival: ambulatory History of Present Illness: 33-year-old male presents emergency room with complaints of 3 days onset of nausea vomiting. Localizes the pain to the right flank. No hematuria he does have a history of kidney stones. Patient is extremely uncomfortable he can get some relief in the left lateral recumbent position. MD elicited complaint: flank pain (Right) Pertinent past history: kidney stones Onset (ago): day(s) (3) Pain Consistency: constant Location: R flank Severity: severe Quality: cramping and sharp Exacerbating factors: nothing Relieving factors: nothing Associated Symptoms: Reports GI cramping (Right flank), nausea and vomiting; Denies anorexia, belching, bloating, change in bowel habits, change in stool character, chills, coffee ground emesis, constipation, diarrhea, dyspepsia, dysuria, excessive flatus, fever(s), heartburn, hematochezia, hematuria, hematemesis, fecal incontinence, loose stools, melena, poor appetite, syncope and other Review of Systems 2 Const: Denies: fever(s) or chills Card: Denies: syncope Resp: Denies: dyspnea GI: Reports: nausea, vomiting and GI cramping (Right flank); Denies: hematemesis, coffee ground emesis, heartburn, diarrhea, constipation, bloating, belching, excessive flatus, fecal incontinence, change in bowel habits, change in stool character, hematochezia, melena or other : Denies: dysuria or hematuria Musc: Denies: neck pain or back pain Skin/Breast: Denies: rash PFSH ED 2 PFSH: Medical History (Updated 01/08/24 @ 06:13 by Charles Coronado DO) Diverticular disease Calcium urolithiasis Ureteral stone Family History Mother Diabetes Cirrhosis of liver Social History Smoking and tobacco/nicotine status: current every day tobacco/nicotine user cigarettes Packs smoked per day: 1 [ Other cigarette details: started smoking in 2005 until 2012. Quit for 7 years. Started back in 2019.] Alcohol intake: current Alcohol intake frequency: 0-2 Drinks per Day Alcohol type: beer Alcohol use comment: he drinks two beers a night to flush his kidneys out. 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 Current occupational exposures/hazards: Yes Current gender identity: Male Physical Exam 2 Const: COMMON NORMALS: no acute distress GENERAL APPEARANCE: cooperative and comfortable ORIENTATION/CONSCIOUSNESS: Yes awake, Yes oriented to person, Yes oriented to place and Yes oriented to time HENMT: COMMON NORMALS: normocephalic, atraumatic and hearing grossly normal bilaterally HEAD & SCALP: normocephalic and atraumatic Resp: COMMON NORMALS: normal respiratory effort, No retractions, No use of accessory muscles and clear to auscultation bilaterally AUSCULTATION: clear to auscultation bilaterally Cardio: COMMON NORMALS: regular rate, regular rhythm and No murmurs present (Cardio) RATE: regular rate RHYTHM: regular rhythm GI: COMMON NORMALS: Soft to palpation and No hepatosplenomegaly present A USCULTATION: Yes normoactive bowel sounds PALPATION: Yes Soft to palpation, No Tenderness to palpation present (GI), No Guarding due to palpation present (GI) and Yes No hepatosplenomegaly present Extremity: COMMON NORMALS: normal to inspection, capillary refill normal, no clubbing, cyanosis or edema, no calf tenderness and no pedal edema Neuro: SENSORIUM/ORIENTATION: Yes oriented to person, Yes oriented to place and Yes oriented to time Skin: COMMON NORMALS: no rashes or lesions noted GENERAL SKIN EXAM: no rashes or lesions noted Course 2 Vital Signs: Vital signs: Vital Signs Temperature 98.0 F 01/08/24 04:30 Pulse Rate 68 01/08/24 04:30 Respiratory Rate 16 01/08/24 04:30 Blood Pressure 109/70 01/08/24 04:30 Pulse Oximetry 94 01/08/24 04:30 Oxygen Delivery Me thod Room Air 01/08/24 04:30 Oxygen Flow Rate 2 01/05/24 15:19 MDM - Abdominal Pain Medical Decision Making CT shows segment of diverticulitis with some stenosis. Is also question of infiltrate on the left lower lobe. He has been started on Zosyn. Will admit to hospitalist consult general surgery. Differential Diagnosis Likely abdominal pain, calculus of kidney, diverticulitis, gastroenteritis and small bowel obstruction Medical Records I reviewed the patient's medical records. Lab Data I reviewed the patient's lab results. 01/08/24 02:48 01/08/24 02:48 Labs/Radiology: Radiology Impressions Chest CT 01/06/24 14:56 IMPRESSION: Persistent bibasilar atelectasis with small right pleural effusion. Minimal place change roof bolter the past day Laboratory Results WBC 8.42 10^3/uL (3.29-11.43) 01/05/24 11:43 RBC 5.39 10^6/uL (3.85-5.65) 01/05/24 11:43 Hgb 16.70 g/dL (11.27-16.99) 01/05/24 11:43 Hct 47.7 % (37-53) 01/05/24 11:43 MCV 88.5 fl (82-101) 01/05/24 11:43 MCH 31.0 pg (27-33) 01/05/24 11:43 MCHC 35.0 g/dL (30-55) 01/05/24 11:43 RDW 12.4 % (12.1-15.1) 01/05/24 11:43 Plt Count 229 10^3/cmm (157-399) 01/05/24 11:43 MPV 9.6 fL (7.4-10.4) 01/05/24 11:43 Neut % (Auto) 72.1 % 01/05/24 11:43 Lymph % (Auto) 14.1 % 01/05/24 11:43 [place] % (Auto) 9.9 % 01/05/24 11:43 Eos % (Auto) 3.0 % 01/05/24 11:43 Baso % (Auto) 0.5 % 01/05/24 11:43 Neut # (Auto) 6.08 10^3/uL (1.8-7.7) 01/05/24 11:43 Lymph # (Auto) 1.2 10^3/uL (0.8-4.8) 01/05/24 11:43 [place] # (Auto) 0.8 10^3/uL (0.2-0.9) 01/05/24 11:43 Eos # (Auto) 0.3 10^3/uL (0.0-0.8) 01/05/24 11:43 Baso # (Auto) 0.0 10^3/uL (0.0-0.1) 01/05/24 11:43 Nucleated RBC % (auto) 0 % 01/05/24 11:43 Nucleated RBCs # 0.0 /100WBC 01/05/24 11:43 Sodium 135 mmol/L (136-145) L 01/05/24 11:43 Potassium 4.2 mmol/L (3.5-5.1) 01/05/24 11:43 Chloride 99 mmol/L (98-107) 01/05/24 11:43 Carbon Dioxide 22 mmol/L (22-29) 01/05/24 11:43 Anion Gap 18.2 (5-19) 01/05/24 11:43 BUN 10 mg/dL (6-20) 01/05/24 11:43 Creatinine 1.1 mg/dL (0.7-1.2) 01/05/24 11:43 GFR Calculation 76.2 mL/min (90-130) L 01/05/24 11:43 Glucose 123 mg/dL (65-115) H 01/05/24 11:43 Calculated Osmolality 280 mOsm/kg (285-295) L 01/05/24 11:43 Lactic Acid 1.4 mmol/L (0.5-2.2) 01/05/24 14:15 Calcium 9.3 mg/dL (8.5-10.5) 01/05/24 11:43 Total Bilirubin 0.6 mg/dL (0.15-1.2) 01/05/24 11:43 AST 17 U/L (0-40) 01/05/24 11:43 ALT 26 U/L (0-41) 01/05/24 11:43 Alkaline Phosphatase 99 U/L (40-130) 01/05/24 11:43 Total Protein 8.3 g/dL (6.6-8.7) 01/05/24 11:43 Albumin 4.0 g/dL (3.5-5.2) 01/05/24 11:43 Globulin 4.3 g/dL (1.3-4.6) 01/05/24 11:43 Lipase 30 U/L (13-60) 01/05/24 11:43 Urine Color Dark yellow (Yellow) 01/05/24 14:03 Urine Appearance Clear (CLEAR) 01/05/24 14:03 Urine pH 5 (5-7) 01/05/24 14:03 Ur Specific [place] 1.025 (1.005-1.030) 01/05/24 14:03 Urine Protein Neg (Negative) 01/05/24 14:03 Urine Glucose (UA) Norm (Normal) 01/05/24 14:03 Urine Ketones Negative (Negative) 01/05/24 14:03 Urine Blood Neg (Negative) 01/05/24 14:03 Urine Nitrate Negative (Negative) 01/05/24 14:03 Urine Bilirubin Neg (Negative) 01/05/24 14:03 Urine Urobilinogen Norm mg/dL (Negative) 01/05/24 14:03 Ur Leukocyte Esterase Negative (Negative) 01/05/24 14:03 All radiology interpretation(s) finalized by discharge Discharge Plan Discharge Patient Disposition: Admitted As Inpatient Admit Provider: Anna Erazo Clinical Impression: Diverticulitis, Pneumonia Condition: Stable Coding Level of Care Code ED Tie Worker for Stepan Washburn
[2024-01-05] MEDS: ondansetron 2 mg/ML SDV 2 mL 4 MG IVP ×2 (12:44→19:14)
[2024-01-05] MEDS: sodium chloride 0.9% 1,000 ML 999 ML IV (12:45)
[2024-01-05] MEDS: morphine 4 mg/mL SDV 1 mL IVP ×2 (12:45→19:14)
--- NOTE | 2024-01-05 14:06 | XR_ITS ---
WS: [id number] Examination: XR chest 1V portable [id number] Reason for Exam: dyspnea/cough Date: 01/05/2024 Comparison: 03/29/2013 Findings: Cardiomediastinal silhouette is within normal limits. There is no failure or large effusion There is linear infiltrate in the left base. This may represent pneumonia or atelectasis. Impression: Minimal left lower lobe linear infiltrate is noted as above.
[2024-01-05 14:16] LABS: Add Urine Microscopic? NO; Charge for UA Resulting for Rev
[2024-01-05] MEDS: piperacillin-tazobactam 3.375 GM in sodium chloride 0.9% (plus) 50 ML IV ×2 (14:21→22:26)
[2024-01-05 14:24] LABS: Bilirubin Urine Neg (Negative); Blood Urine Neg (Negative); Glucose Urine UA Norm (Normal); Ketones Urine Negative (Negative); Leukocyte Esterase Urine Negative (Negative); Nitrate Urine Negative (Negative); Protein Urine Neg (Negative); Specific Gravity, Urine 1.025 (1.005-1.030); Urine Appearance Clear (CLEAR); Urine Color Dark Yellow (Yellow); Urobilinogen Urine Norm (Negative); pH Urine 5 (5-7)
[2024-01-05 14:45] LABS: Lactic Sepsis W/Reflex 1.4 mmol/L (0.5-2.2)
--- NOTE | 2024-01-05 18:04 | P.CONIM_ITS ---
Providers/Reason For Consult 2 Consulting Physician/Specialty*: Dr. John Gamez, DO/General surgery Reason for Consult*: Abdominal pain Attending Physician: Anna Erazo MD History of Present Illness History of Present Illness Brad Perez is a 33 year old male presented to the hospital with a several day history of left lower quadrant and right lower quadrant abdominal pain. 2 months ago he was diagnosed with his first episode of uncomplicated diverticulitis. He completed a 14-day course of Augmentin at home. He reports that his pain never really resolved but has gotten worse in last few days. The pain is dull and constant and does not radiate. Palpation makes pain worse. Nothing makes pain better. Generally he has felt ill and had a productive cough. He has had some diarrhea but denies any hematochezia and/or melena. Denies any nausea or vomiting. CT abdomen pelvis shows uncomplicated sigmoid diverticulitis Review of Systems 2 General: Reports: 10 or more systems reviewed and unremarkable except in HPI and below Medications/Allergies Home Medications Medication Instructions Recorded Confirmed Last Taken Type vnckimd-zkjwbamxqqqpi-jqaijrxx 250 1 tab PO Q6H PRN Headache 04/04/20 01/05/24 Unknown History mg-250 mg-65 mg tablet (Headache Relief (OSM-rnarawwzlsjv-rrozyhuk)) pantoprazole 40 mg tablet,delayed 40 mg PO BID 6 weeks #84 tabs 11/15/23 01/05/24 01/04/24 Rx release (Protonix) acetaminophen 500 mg tablet 500 mg PO Q6H PRN Pain 01/05/24 01/05/24 01/05/24 History (Tylenol Extra Strength) Allergies Allergy/AdvReac Type Severity Reaction Status Date / Time codeine Allergy ALGY-Swell Verified 01/05/24 19:18 Lip/Tongue/Throat clams AdvReac Severe ALGY-Difficulty Uncoded 11/15/23 13:34 Breathing Current Medications Generic Name Dose Route Start Last Admin Trade Name Freq PRN Reason Stop Dose Admin Dextrose/Sodium Chloride 1,000 mls @ 100 mls/hr 01/05/24 21:45 01/06/24 06:07 Dextrose 5%-Sod Chloride 0.45% IV 0 mls/hr .Q10H CALEB Infusion Piperacillin Sod/Tazobactam 50 mls @ 12.5 mls/hr 01/05/24 22:00 01/06/24 14:23 Sod 3.375 gm/ Sodium Chloride IV 12.5 mls/hr Q8H CALEB Administration Protocol Morphine Sulfate 4 mg 01/05/24 16:44 01/06/24 14:22 Morphine 4 Mg/Ml Sdv 1 Ml IVP 4 mg Q4H PRN Administration SEVERE PAIN Ondansetron HCl 4 mg 01/05/24 16:44 01/06/24 12:17 Ondansetron 2 Mg/Ml Sdv 2 Ml IVP 4 mg Q6H PRN Administration NAUSEA AND VOMITING Pantoprazole Sodium 40 mg 01/06/24 07:00 01/06/24 05:57 Pantoprazole 40 Mg Sdv IVP 40 mg ACBREAKFAST CALEB Administration PFSH Acute 2 PFSH: Medical History Diverticular disease Calcium urolithiasis Ureteral stone Family History Mother Diabetes Cirrhosis of liver Social History Smoking and tobacco/nicotine status: current every day tobacco/nicotine user cigarettes Packs smoked per day: 1 [ Other cigarette details: started smoking in 2005 until 2012. Quit for 7 years. Started back in 2019.] Alcohol intake: current Alcohol intake frequency: 0-2 Drinks per Day Alcohol type: beer Alcohol use comment: he drinks two beers a night to flush his kidneys out. 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 Current occupational exposures/hazards: Yes Current gender identity: Male Vitals/I&O/Wt Last Vital Signs Temp 97.8 F 01/06/24 12:09 Pulse 69 01/06/24 12:09 Resp 17 01/06/24 14:22 BP 118/74 01/06/24 12:09 Pulse Ox 94 01/06/24 12:09 O2 Del Method Room Air 01/06/24 12:09 O2 Flow Rate 2 01/05/24 15:19 01/06/24 01/06/24 01/06/24 06:59 14:59 22:59 Intake Total 1750 / 2800 1741.2 / 1741.2 Balance 1750 / 2800 1741.2 / 1741.2 Weight last 48 hrs Weight 273 lb Weight 272 lb 4.8 oz Weight 265 lb Physical Exam 2 Narrative: General : Patient is well developed , no acute distress, oriented x3 Head : Normal cephalic, a-traumatic. Ears : Pinnae and external canal are normal. Hearing is normal. Eyes : PERRLA, Sclera and injection are normal. No conjunctival discharge. Nose : Mucous membranes are without erythema. Throat : buccal mucosa is normal, gums are without significant recession or hypertrophy. Lungs : Equal chest rise bilaterally, no use of accessory muscles, trachea is midline. Cor : Rate and rhythm are normal. Abdomen : Soft, ND, mild right lower quadrant tenderness, no g/r/m Extremities : No edema, no cyanosis or clubbing, dorsalis pedis pulses are present bilaterally, non-tender to palpation of calves. Upper extremities are normal bilaterally. Back : non-tender to palpation, no CVA tenderness. Neuro : CN II - XII intact, Upper and lower extremities have equal and full strength Data 01/06/24 04:22 01/06/24 04:22 Micro: Microbiology 01/05/24 14:18 Blood Culture - Preliminary Blood NEGATIVE TO DATE 01/05/24 14:15 Blood Culture - Preliminary Blood NEGATIVE TO DATE A&P Assessment and plan (1) Diverticulitis: Plan IV fluids IV antibiotics. I would like him to stay in the hospital for a few days for IV antibiotics as he failed an outpatient course of oral antibiotics 2 months ago N.p.o. He will need a follow-up colonoscopy in 4 to 6 weeks after resolution No acute surgical intervention Medical management per hospitalist Coding Level of Care Code 16285 Diagnoses Diverticulitis K57.92
--- NOTE | 2024-01-05 21:25 | P.HP_ITS ---
Providers/Chief Complaint 2 Admitting Physician: Anna Erazo MD Chief Complaint: abd pain History of Present Illness Brad Perez is a 33 yo man w/ a hx of recurrent diverticulitis since age 16, GERD, tobacco use d/o (current 1ppd), R. kidney stone, who presented to the ED on 01/05/2024 w/ complaints of R. sided abdominal pain. THe patient states that he was hospitalized for one week for his diverticulitis during his first episode at age 16, and since then he has had at least 4 other flare ups requiring abx. The patient states that starting on 01/02/2024, he started to experience 6- 7/10, sharp, constant abdominal pain made worse with inspiration. He states that sitting in his recliner, leaned back and turned slightly to the left or right that made the abdominal pain tolerable. Attempts to clear his throat worsened the pain. He took Acetaminophen, which would slightly dull the pain, but the patient states that the Tylenol did not really help. The pain progressed throughout the week to the point that it was a 10/10 today. His girlfriend convinced him to present to the ED. Along with the abdominal pain is diaphoresis. He states that his appetite has not changed, and that he is starving, but eating hurts worsens the RUQ abd pain. He denies n/v, diarrhea, constipation, melena, hematochezia, fever, chills, malaise. In the ED, he had an episode of tachypnea to 25 breaths/min. His labs showed no leukocytosis, and except for an AGAP of 18, his CMP was not grossly abnormal. A CXR was done that showed and minimal left lower lobe linear infiltrate concerning for pneumonia vs atelectasis. A CT abdomen and pelvis was done that showed no obstructing renal or ureteral calculi, subsegmental atelectasis in the lower lung bases, and an irregular wall thickening in the proximal sigmoid colon in the L. lower quadrant with slight surrounding induration, concerning for diverticulitis vs colitis vs a neoplastic process. The patient was given 1L NS bolus, Morphine x 1, Zofran x1, and Zosyn prior to admission. Review of Systems 2 Const: Denies: fever(s), chills or change in appetite Eyes: Denies: change in vision ENMT: Reports: other (no sore throat or dysphagia); Denies: odynophagia, ear or mastoid pain, ear discharge, nasal discharge or nasal congestion Card: Reports: swelling of feet/ankles (R. leg swelling ); Denies: chest pain, palpitations, lightheadedness or syncope Resp: Denies: dyspnea, productive cough or wheezing GI: Reports: abdominal pain; Denies: nausea, vomiting, diarrhea, constipation, hematochezia or melena : Denies: flank pain, difficulty urinating, dysuria, urinary frequency, urinary urgency or hematuria Musc: Reports: other (no myalgias or arthralgias) Skin/Breast: Denies: rash or new lesions Neuro: Reports: other (no LOC); Denies: headache(s) or dizziness Psych: Denies: anxiety, depression, suicidal ideation or homicidal ideation Endo: Denies: cold intolerance or heat intolerance Tiago/Lymph: Reports: easy bruising; Denies: easy bleeding All/Imm: Reports: throat swelling (to clams) and food intolerance Medications/Allergies Home Medications Medication Instructions Recorded Confirmed Last Taken Type mpbyefn-ftdvwbxjuprbu-wugqnqxy 250 1 tab PO Q6H PRN Headache 04/04/20 01/05/24 Unknown History mg-250 mg-65 mg tablet (Headache Relief (UBK-bqcjinctzyua-cnyxawde)) pantoprazole 40 mg tablet,delayed 40 mg PO BID 6 weeks #84 tabs 11/15/23 01/05/24 01/04/24 Rx release (Protonix) acetaminophen 500 mg tablet 500 mg PO Q6H PRN Pain 01/05/24 01/05/24 01/05/24 History (Tylenol Extra Strength) Allergies Allergy/AdvReac Type Severity Reaction Status Date / Time codeine Allergy ALGY-Swell Verified 01/05/24 19:18 Lip/Tongue/Throat clams AdvReac Severe ALGY-Difficulty Uncoded 11/15/23 13:34 Breathing PFSH Acute 2 PFSH: Medical History (Updated 01/06/24 @ 00:30 by Anna Erazo MD) Diverticular disease Calcium urolithiasis Ureteral stone Family History Mother Diabetes Cirrhosis of liver Social History (Updated 01/06/24 @ 00:05 by Anna Erazo MD) Smoking and tobacco/nicotine status: current every day tobacco/nicotine user cigarettes Packs smoked per day: 1 [ Other cigarette details: started smoking in 2005 until 2012. Quit for 7 years. Started back in 2019.] Alcohol intake: current Alcohol intake frequency: 0-2 Drinks per Day Alcohol type: beer Alcohol use comment: he drinks two beers a night to flush his kidneys out. 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 Current occupational exposures/hazards: Yes Current gender identity: Male Vitals/I&O/Wt Last Vital Signs Temp 97.9 F 01/05/24 11:16 Pulse 90 01/05/24 18:03 Resp 16 01/05/24 19:14 BP 106/64 01/05/24 18:03 Pulse Ox 95 01/05/24 18:03 O2 Del Method Room Air 01/05/24 18:59 O2 Flow Rate 2 01/05/24 15:19 01/05/24 01/05/24 01/05/24 06:59 14:59 22:59 Intake Total 1000 / 1000 50 / 1050 Balance 1000 / 1000 50 / 1050 Weight last 48 hrs Weight 123.513 kg Weight 120.202 kg Physical Exam 2 Const: GENERAL APPEARANCE: cooperative and comfortable NUTRITIONAL APPEARANCE: obese ORIENTATION/CONSCIOUSNESS: Yes awake, Yes oriented to person, Yes oriented to place and Yes oriented to time HENMT: HEAD & SCALP: normocephalic and atraumatic FACE & SINUS: normal facial exam NOSE: Normal external nose present EXTERNAL EAR: Yes external ears normal MOUTH: Normal oral and palatal mucosa present THROAT: p osterior oropharynx normal Eye: CONJUNCTIVA: Yes conjunctivae normal PUPIL: Yes Equal, round and reactive pupils present EOM: No EOM abnormal Neck/C-Spine: GENERAL: Yes normal visual inspection and Yes trachea midline THYROID: Thyroid normal CAROTIDS: No bruit CERVICAL SPINE: Yes cervical ROM normal Lymph: LYMPHATIC: No lymphadenopathy Resp: OTHER: CTAB w/ no w/r/r Cardio: OTHER: RRR, no m/r/g or clicks GI: OTHER: BS, tenderness in the R. lumbar region of the abdomen but no guarding rigidity, rebound tenderness or hepatosplenomegaly. Extremity: GENERAL: No clubbing, No cyanosis and No edema Neuro: COMMON NORMALS: CN's II-XII intact bilaterally CRANIAL NERVES: Yes CN normal except as noted SPEECH: speech normal SENSORY EXAM: No sensory level loss detected MOTOR EXAM: 5/5 motor strength present throughout and Normal motor muscle tone present throughout Psych: APPEARANCE: Yes grossly normal ATTITUDE: Yes calm and Yes engaged ACTIVITY/MOTOR BEHAVIOR: Yes appropriate eye contact SPEECH: Yes normal speech MOOD & AFFECT: Yes euthymic mood THOUGHT PROCESS: Normal thought process present THOUGHT CONTENT: Yes Normal thought content present A TTENTION/CONCENTRATION: Yes attention grossly intact MEMORY/COGNITION: Yes memory grossly intact Skin: GENERAL SKIN EXAM: no rashes or lesions noted Data 01/05/24 11:43 01/05/24 11:43 Micro: Microbiology 01/05/24 14:15 Blood Culture - Preliminary Blood SPECIMEN COLLECTED 01/05/24 14:18 Blood Culture - Preliminary Blood SPECIMEN COLLECTED A&P Assessment and plan (1) Diverticulitis: Diane Perez is a 33 yo man w/ a hx of recurrent diverticulitis since age 16, GERD, tobacco use d/o (current 1ppd), R. kidney stone, who presented to the ED on 01/05/2024 w/ complaints of R. sided abdominal pain. THe patient states that he was hospitalized for one week for his diverticulitis during his first episode at age 16, and since then he has had at least 4 other flare ups requiring abx. In the ED, he had an episode of tachypnea to 25 breaths/min. His labs showed no leukocytosis, and except for an AGAP of 18, his CMP was not grossly abnormal. A CXR was done that showed and minimal left lower lobe linear infiltrate concerning for pneumonia vs atelectasis. A CT abdomen and pelvis was done that showed no obstructing renal or ureteral calculi, subsegmental atelectasis in the lower lung bases, and an irregular wall thickening in the proximal sigmoid colon in the L. lower quadrant with slight surrounding induration, concerning for diverticulitis vs colitis vs a neoplastic process. The patient was given 1L NS bolus, Morphine x 1, Zofran x1, and Zosyn prior to admission. #R. sided abdominal pain - concerning for #Recurrent diverticulitis. Consider gallbladder etiology. - Ordered RUQ US. - Give another 1L NS bolus. Start and continue d5 1/2 NS. - Continue Zosyn - Gen Surg consulted. Recs appreciated. Patient made NPO after midnight. #GERD: PPI initiated. #Tobacco use d/o: nicotine patch #Hx of kidney stone: non available DVT ppx: SCDs - Attestations 2 Medical Necessity Statement*: Patient will require >2 midnights of hospitalization for recurrent diverticulitis. Coding Level of Care Code 20678 Diagnoses Diverticulitis K57.92
[2024-01-05] MEDS: dextrose 5%-sod chloride 0.45% 1,000 ML 100 ML IV (21:59)
--- NOTE | 2024-01-05 22:07 | US_ITS ---
WS: [id number] RIGHT UPPER QUADRANT ULTRASOUND HISTORY: R. sided abdominal pain COMPARISON: None available. Liver: 16.1 cm in length. Normal size liver and echogenicity. No bile duct dilatation or mass. Portal Vein: Normal hepatopetal flow with monophasic waveform. Gallbladder: Normally distended gallbladder with no stones or wall thickening. CBD: 0.4 cm Pancreas: Normal size and echogenicity. Right kidney: 10.1 cm in length. Normal size and echogenicity. No hydronephrosis or mass. Aorta and IVC: Unremarkable abdominal aorta and IVC. No ascites. IMPRESSION: Normal RIGHT upper quadrant ultrasound.
[2024-01-06] VITALS (11 sets, daily range): BP systolic 100–135; BP diastolic 66–81; PULSE 62–74; RESP 16–18; TEMP 36.6–37.1; O2SAT 92–100; BMI 36.0
[2024-01-06] MEDS: sodium chloride 0.9% 1,000 ML 999 ML IV (00:59)
[2024-01-06] MEDS: morphine 4 mg/mL SDV 1 mL IVP ×4 (01:02→14:22)
[2024-01-06] MEDS: ondansetron 2 mg/ML SDV 2 mL 4 MG IVP ×2 (01:03→12:17)
--- NOTE | 2024-01-06 02:06 | PC.NURSE ---
Unable to administer banana bag at this time due to no pharmacist in house.
[2024-01-06 02:16] LABS: Add Urine Microscopic? NO; Charge for UA Resulting for Rev
[2024-01-06 02:22] LABS: Bilirubin Urine Neg (Negative); Blood Urine Neg (Negative); Glucose Urine UA Norm (Normal); Ketones Urine Negative (Negative); Leukocyte Esterase Urine Negative (Negative); Nitrate Urine Negative (Negative); Protein Urine Neg (Negative); Urine Appearance Clear (CLEAR); Urine Color Light yellow (Yellow); Urobilinogen Urine Neg (Negative); pH Urine 7 (5-7)
[2024-01-06 04:43] LABS: Basophils % 0.3 %; Eosinophils # 0.3 10^3/uL (0.0-0.8); Eosinophils % 4.3 %; Hematocrit 44.1 % (37-53); Lymphocytes # 1.3 10^3/uL (0.8-4.8); Lymphocytes % 20.9 %; Mean Corpuscular HGB Conc 33.6 g/dL (30-55); Mean Corpuscular Hemoglobin 30.6 pg (27-33); Mean Corpuscular Volume 91.3 fl (82-101); Mean Platelet Volume 9.5 fL (7.4-10.4); Monocytes # 0.7 10^3/uL (0.2-0.9); Monocytes % 11.5 %; Neutrophils # 3.81 10^3/uL (1.8-7.7); Neutrophils % 62.7 %; Nucleated Red Blood Cells % 0 %; Platelet Count 180 10^3/cmm (157-399); Red Blood Count 4.83 10^6/uL (3.85-5.65); Red Cell Distribution Width 12.3 % (12.1-15.1); White Blood Count 6.08 10^3/uL (3.29-11.43)
[2024-01-06 04:53] LABS: INR 1.04 (0.8-1.2); Partial Thromboplastin Time 28.4 SECONDS (23.9-36.7)
[2024-01-06 05:05] LABS: Alanine Aminotransferase 21 U/L (0-41); Albumin Level 3.4 g/dL (3.5-5.2); Alkaline Phosphatase 84 U/L (40-130); Anion Gap 14.1 (5-19); Aspartate Amino Transferase 15 U/L (0-40); Blood Urea Nitrogen 11 mg/dL (6-20); Calcium 8.7 mg/dL (8.5-10.5); Carbon Dioxide 26 mmol/L (22-29); Chloride 101 mmol/L (98-107); Creatinine Clr Calc Pharmacy 141.9618; Globulin 3.6 g/dL (1.3-4.6); Glucose 96 mg/dL (65-115); Osmolality Calculated 283 mOsm/kg (285-295); Phosphorus 3.3 mg/dL (2.5-4.5); Potassium 4.1 mmol/L (3.5-5.1); Sodium 137 mmol/L (136-145); Total Bilirubin 0.6 mg/dL (0.15-1.2)
[2024-01-06] MEDS: pantoprazole 40 mg SDV IVP (05:57)
[2024-01-06] MEDS: piperacillin-tazobactam 3.375 GM in sodium chloride 0.9% (plus) 50 ML IV ×3 (05:57→21:29)
[2024-01-06] MEDS: folic acid 1 MG, multivitamin inj 10 ML, thiamine 100 MG in sodium chloride 0.9% 1,000 ML 252.800000000000011 MG IV (06:25)
--- NOTE | 2024-01-06 10:11 | P.PN_ITS ---
Subjective 2 Subjective: Patient seen and examined. Pain improved. Denies any nausea or vomiting. He has not had a bowel movement but he is passing flatus. Vitals/I&O/Wt Last Vital Signs Temp 97.8 F 01/07/24 08:54 Pulse 67 01/07/24 08:54 Resp 18 01/07/24 08:54 BP 113/66 01/07/24 08:54 Pulse Ox 95 01/07/24 08:54 O2 Del Method Room Air 01/07/24 08:54 O2 Flow Rate 2 01/05/24 15:19 01/06/24 01/07/24 01/07/24 22:59 06:59 14:59 Intake Total 530 / 2271.2 1628.125 / 3899.325 460 / 460 Balance 530 / 2271.2 1628.125 / 3899.325 460 / 460 Weight last 48 hrs Weight 277 lb 8 oz Weight 273 lb Weight 272 lb 4.8 oz Weight 265 lb Physical Exam 2 Narrative: General: No acute distress, awake alert and oriented x 3 Abdomen: Soft, nondistended, mild right lower quadrant tenderness, no guarding rebound or masses Data 01/07/24 03:59 01/07/24 03:59 Micro: Microbiology 01/05/24 14:18 Blood Culture - Preliminary Blood NEGATIVE TO DATE 01/05/24 14:15 Blood Culture - Preliminary Blood NEGATIVE TO DATE A&P Assessment and plan (1) Diverticulitis: Plan IV antibiotics. Since he failed outpatient antibiotics I would like to keep him at least until Tuesday for IV antibiotics before discharging home on a 14-day course of Augmentin Clear liquid diet No acute surgical intervention He will need a diagnostic colonoscopy in 4 to 6 weeks after resolution of this diverticulitis event Medical management per primary Attestations 2 Medical Necessity Statement*: Per primary Coding Level of Care Code 62751 Diagnoses Diverticulitis K57.92
--- NOTE | 2024-01-06 14:56 | CTR_ITS ---
PROCEDURE INFORMATION: Exam: CT Chest Without Contrast; Diagnostic Exam date and time: 01/06/2024 4:21 PM Age: 33 years old Clinical indication: Shortness of breath and other: Evaluate infiltrate seen on cxr; Additional info: Evaluate infiltrate noted on cxr TECHNIQUE: Imaging protocol: Diagnostic computed tomography of the chest without contrast. Radiation optimization: All CT scans at this facility use at least one of these dose optimization techniques: automated exposure control; mA and/or kV adjustment per patient size (includes targeted exams where dose is matched to clinical indication); or iterative reconstruction. COMPARISON: CR XR chest 1V portable [id number] 01/05/2024 2:16 PM RADIATION DOSE METRICS: Total DLP (mGy-cm): 611.13 FINDINGS: Lungs: Patchy atelectasis involves both lung bases but I see no lung mass or infiltrate. Pleural spaces: Small right pleural effusion is noted. Heart: Unremarkable. No cardiomegaly. No pericardial effusion. Lymph nodes: Unremarkable. No enlarged lymph nodes. Vasculature: Unremarkable. No aortic aneurysm. Bones/joints: Unremarkable. No acute fracture. Soft tissues: Unremarkable. CT/CT chest con [id number] IMPRESSION: Persistent bibasilar atelectasis with small right pleural effusion. Minimal filter changer the past day
--- NOTE | 2024-01-06 15:59 | P.PN_ITS ---
Subjective 2 Subjective: The patient felt nauseous but feels that it is due to eating too quickly. He continues to endorse abdominal pain, but states that it is decreased, and more intermittent at this time. He denies fever or chills, emesis, dizziness, lightheadedness, headaches. He tells me, that he was taking amoxicillin from Tuesday 01/02 when he began to feel the R. sided abdominal pain, and on 01/04/2024. Per discussion with his surgeon this morning, the patient should be on a clear liquid diet today, and transition to a full liquid diet the next day if he tolerates a clear liquid diet. Vitals/I&O/Wt Last Vital Signs Temp 98.8 F 01/06/24 15:49 Pulse 62 01/06/24 15:49 Resp 16 01/06/24 15:49 BP 113/75 01/06/24 15:49 Pulse Ox 92 01/06/24 15:49 O2 Del Method Room Air 01/06/24 15:49 O2 Flow Rate 2 01/05/24 15:19 01/06/24 01/06/24 01/06/24 06:59 14:59 22:59 Intake Total 1750 / 2800 1741.2 / 1741.2 Balance 1750 / 2800 1741.2 / 1741.2 Weight last 48 hrs Weight 123.831 kg Weight 123.513 kg Weight 120.202 kg Physical Exam 2 Const: GENERAL APPEARANCE: cooperative and comfortable NUTRITIONAL APPEARANCE: obese ORIENTATION/CONSCIOUSNESS: Yes awake, Yes oriented to person, Yes oriented to place and Yes oriented to time HENMT: COMMON NORMALS: normocephalic, atraumatic, external ears normal and Normal external nose present HEAD & SCALP: normocephalic and atraumatic F ERIC & SINUS: normal facial exam NOSE: Normal external nose present E XTERNAL EAR: Yes external ears normal MOUTH: Normal oral and palatal mucosa present THROAT: posterior oropharynx normal Eye: COMMON NORMALS: Equal, round and reactive pupils present and conjunctivae normal CONJUNCTIVA: Yes conjunctivae normal PUPIL: Yes Equal, round and reactive pupils present EOM: No EOM abnormal Neck/C-Spine: COMMON NORMALS: Thyroid normal GENERAL: Yes normal visual inspection and Yes trachea midline THYROID: Thyroid normal CAROTIDS: No bruit CERVICAL SPINE: Yes cervical ROM normal Lymph: LYMPHATIC: No lymphadenopathy Resp: OTHER: CTAB w/ no w/r/r Cardio: OTHER: RRR, no m/r/g or clicks GI: OTHER: BS, tenderness in the R. lumbar region of the abdomen (improving), no guarding rigidity, rebound tenderness or hepatosplenomegaly. Extremity: GENERAL: No clubbing, No cyanosis and No edema Neuro: COMMON NORMALS: CN's II-XII intact bilaterally S ENSORIUM/ORIENTATION: Yes oriented to person, Yes oriented to place and Yes oriented to time CRANIAL NERVES: Yes CN normal except as noted SPEECH: s peech normal SENSORY EXAM: No sensory level loss detected MOTOR EXAM: 5/5 motor strength present throughout and Normal motor muscle tone present throughout Psych: COMMON NORMALS: Normal thought process present and speech normal A PPEARANCE: Yes grossly normal ATTITUDE: Yes calm and Yes engaged A CTIVITY/MOTOR BEHAVIOR: Yes appropriate eye contact SPEECH: Yes normal speech MOOD & AFFECT: Yes euthymic mood THOUGHT PROCESS: Normal thought process present THOUGHT CONTENT: Yes Normal thought content present A TTENTION/CONCENTRATION: Yes attention grossly intact MEMORY/COGNITION: Yes memory grossly intact Skin: COMMON NORMALS: no rashes or lesions noted GENERAL SKIN EXAM: no rashes or lesions noted Data 01/07/24 03:59 01/07/24 03:59 Micro: Microbiology 01/05/24 14:18 Blood Culture - Preliminary Blood NEGATIVE TO DATE 01/05/24 14:15 Blood Culture - Preliminary Blood NEGATIVE TO DATE A&P Assessment and plan (1) Diverticulitis: Plan Brad Perez is a 33 yo man w/ a hx of recurrent diverticulitis since age 16, GERD, tobacco use d/o (current 1ppd), R. kidney stone, who presented to the ED on 01/05/2024 w/ complaints of R. sided abdominal pain. THe patient states that he was hospitalized for one week for his diverticulitis during his first episode at age 16, and since then he has had at least 4 other flare ups requiring abx. In the ED, he had an episode of tachypnea to 25 breaths/min. His labs showed no leukocytosis, and except for an AGAP of 18, his CMP was not grossly abnormal. A CXR was done that showed and minimal left lower lobe linear infiltrate concerning for pneumonia vs atelectasis. A CT abdomen and pelvis was done that showed no obstructing renal or ureteral calculi, subsegmental atelectasis in the lower lung bases, and an irregular wall thickening in the proximal sigmoid colon in the L. lower quadrant with slight surrounding induration, concerning for diverticulitis vs colitis vs a neoplastic process. The patient was given 1L NS bolus, Morphine x 1, Zofran x1, and Zosyn prior to admission. On admission, patient was continued on Zosyn and IVF. He was made NPO except for sips of water. A RUQ US was obtained that showed a normal gall bladder. His Gen Surgeon was consulted. On 01/06/2024, the patient revealed that he started taking Amoxicillin on 01/02/2024, when he began to experience abdominal pain. He states that he took the amoxicillin until Thursday 01/04. #Recurrent diverticulitis. - Failed outpatient antibioitics. - D/c d5 1/2NS. Start NS. - Will consider discontinuing Zosyn and switching to Fluoroquinolones w/ Metronidazole. - Gen Surg consulted. Clear liquid diet per GEN surge. Recs appreciated #L. lower lobe infiltrate: Obtain a CT chest to further rule out pneumonia. If patient has a pneumonia, will broaden his antibiotics. #GERD: PPI initiated. #Tobacco use d/o: nicotine patch #Hx of kidney stone: Not an issue at this time. DVT ppx: SCDs - Attestations 2 Medical Necessity Statement*: Patient remains hospitalized for his recurrent diverticulitis after failing outpatient antibiotics. Coding Level of Care Code 81180 Diagnoses Diverticulitis K57.92
[2024-01-06] MEDS: sodium chloride 0.9% 1,000 ML 100 ML IV (17:54)
[2024-01-06] MEDS: TRAMadol 50 mg Tablet PO (21:29)
[2024-01-06] MEDS: levofloxacin-dextrose 5 % 750 MG/150 ML PREMIX 100 MG IV (23:09)
[2024-01-06] MEDS: metroNIDAZOLE IV 500 MG/100 ML PREMIX 100 MG IV (23:10)
[2024-01-07] VITALS (8 sets, daily range): BP systolic 103–118; BP diastolic 65–73; PULSE 65–70; RESP 16–18; TEMP 36.6–37; O2SAT 94–96
[2024-01-07] MEDS: morphine 4 mg/mL SDV 1 mL IVP (01:29)
[2024-01-07 04:27] LABS: Basophils % 0.2 %; Eosinophils # 0.2 10^3/uL (0.0-0.8); Hematocrit 41.1 % (37-53); Lymphocytes % 24.4 %; Mean Corpuscular HGB Conc 34.1 g/dL (30-55); Mean Corpuscular Hemoglobin 30.4 pg (27-33); Mean Corpuscular Volume 89.3 fl (82-101); Mean Platelet Volume 9.4 fL (7.4-10.4); Monocytes # 0.5 10^3/uL (0.2-0.9); Monocytes % 11.2 %; Neutrophils # 2.36 10^3/uL (1.8-7.7); Nucleated Red Blood Cells % 0 %; Platelet Count 188 10^3/cmm (157-399); Red Cell Distribution Width 12.1 % (12.1-15.1); White Blood Count 4.01 10^3/uL (3.29-11.43)
[2024-01-07] MEDS: sodium chloride 0.9% 1,000 ML 100 ML IV ×2 (04:33→11:26)
[2024-01-07 04:48] LABS: Alanine Aminotransferase 20 U/L (0-41); Albumin Level 3.5 g/dL (3.5-5.2); Alkaline Phosphatase 89 U/L (40-130); Aspartate Amino Transferase 14 U/L (0-40); Blood Urea Nitrogen 10 mg/dL (6-20); Calcium 8.5 mg/dL (8.5-10.5); Carbon Dioxide 26 mmol/L (22-29); Chloride 102 mmol/L (98-107); Creatinine Clr Calc Pharmacy 143.3378; Globulin 3.5 g/dL (1.3-4.6); Glucose 85 mg/dL (65-115); Magnesium 2.1 mg/dL (1.7-2.3); Osmolality Calculated 284 mOsm/kg (285-295); Phosphorus 3.5 mg/dL (2.5-4.5); Sodium 138 mmol/L (136-145); Total Bilirubin 0.5 mg/dL (0.15-1.2)
[2024-01-07] MEDS: metroNIDAZOLE IV 500 MG/100 ML PREMIX 100 MG IV ×4 (05:27→22:33)
[2024-01-07] MEDS: pantoprazole 40 mg SDV IVP (06:36)
[2024-01-07] MEDS: TRAMadol 50 mg Tablet PO (09:42)
[2024-01-07] MEDS: nicotine 21 mg Patch 1 PATCH TRANSDERMA (09:50)
--- NOTE | 2024-01-07 10:13 | P.PN_ITS ---
Subjective 2 Subjective: Patient seen and examined. Pain controlled. Still no BM but passing flatus. Tolerating clear liquid diet. Vitals/I&O/Wt Last Vital Signs Temp 97.8 F 01/07/24 08:54 Pulse 67 01/07/24 08:54 Resp 18 01/07/24 08:54 BP 113/66 01/07/24 08:54 Pulse Ox 95 01/07/24 08:54 O2 Del Method Room Air 01/07/24 08:54 O2 Flow Rate 2 01/05/24 15:19 01/06/24 01/07/24 01/07/24 22:59 06:59 14:59 Intake Total 530 / 2271.2 1628.125 / 3899.325 460 / 460 Balance 530 / 2271.2 1628.125 / 3899.325 460 / 460 Weight last 48 hrs Weight 277 lb 8 oz Weight 273 lb Weight 272 lb 4.8 oz Weight 265 lb Physical Exam 2 Narrative: General: No acute distress, awake alert and oriented x 3 Abdomen: Soft, nondistended, mild right lower quadrant tenderness, no guarding rebound or masses Data 01/07/24 03:59 01/07/24 03:59 Micro: Microbiology 01/05/24 14:18 Blood Culture - Preliminary Blood NEGATIVE TO DATE 01/05/24 14:15 Blood Culture - Preliminary Blood NEGATIVE TO DATE A&P Assessment and plan (1) Diverticulitis: Plan IV antibiotics. Since he failed outpatient antibiotics I would like to keep him at least until Tuesday for IV antibiotics before discharging home on a 14-day course of Augmentin Full liquid diet No acute surgical intervention He will need a diagnostic colonoscopy in 4 to 6 weeks after resolution of this diverticulitis event Medical management per primary Attestations 2 Medical Necessity Statement*: Per primary Coding Level of Care Code 39904 Diagnoses Diverticulitis K57.92
--- NOTE | 2024-01-07 10:49 | P.PN_ITS ---
Subjective 2 Subjective: Patient tolerated clear liquid and wanted to advance to full liquid. He stated that he felt abdominal pain constantly yesterday from 2 to 310, and when it worsened, he received pain medicine. Last night, he no longer had abdominal pain until 9am this morning, when he felt an episode of 7.5/10 abd pain. He denies nausea, emesis, dizziness, light headedness, f/c, SOB, palpitations. Vitals/I&O/Wt Last Vital Signs Temp 97.8 F 01/07/24 08:54 Pulse 67 01/07/24 08:54 Resp 18 01/07/24 08:54 BP 113/66 01/07/24 08:54 Pulse Ox 95 01/07/24 08:54 O2 Del Method Room Air 01/07/24 08:54 O2 Flow Rate 2 01/05/24 15:19 01/06/24 01/07/24 01/07/24 22:59 06:59 14:59 Intake Total 530 / 2271.2 1628.125 / 3899.325 460 / 460 Balance 530 / 2271.2 1628.125 / 3899.325 460 / 460 Weight last 48 hrs Weight 125.872 kg Weight 123.831 kg Weight 123.513 kg Weight 120.202 kg Physical Exam 2 Const: GENERAL APPEARANCE: cooperative and comfortable NUTRITIONAL APPEARANCE: obese ORIENTATION/CONSCIOUSNESS: Yes awake, Yes oriented to person, Yes oriented to place and Yes oriented to time HENMT: COMMON NORMALS: normocephalic, atraumatic, external ears normal and Normal external nose present HEAD & SCALP: normocephalic and atraumatic F ERIC & SINUS: normal facial exam NOSE: Normal external nose present E XTERNAL EAR: Yes external ears normal MOUTH: Normal oral and palatal mucosa present THROAT: posterior oropharynx normal Eye: COMMON NORMALS: Equal, round and reactive pupils present and conjunctivae normal CONJUNCTIVA: Yes conjunctivae normal PUPIL: Yes Equal, round and reactive pupils present EOM: No EOM abnormal Neck/C-Spine: COMMON NORMALS: Thyroid normal GENERAL: Yes normal visual inspection and Yes trachea midline THYROID: Thyroid normal CAROTIDS: No bruit CERVICAL SPINE: Yes cervical ROM normal Lymph: LYMPHATIC: No lymphadenopathy Resp: OTHER: CTAB w/ no w/r/r Cardio: OTHER: RRR, no m/r/g or clicks GI: OTHER: BS, tenderness in the R. lumbar region of the abdomen (improved but same as 01/07/2024), no guarding rigidity, rebound tenderness or hepatosplenomegaly. Extremity: GENERAL: No clubbing, No cyanosis and No edema Neuro: COMMON NORMALS: CN's II-XII intact bilaterally S ENSORIUM/ORIENTATION: Yes oriented to person, Yes oriented to place and Yes oriented to time CRANIAL NERVES: Yes CN normal except as noted SPEECH: s peech normal SENSORY EXAM: No sensory level loss detected MOTOR EXAM: 5/5 motor strength present throughout and Normal motor muscle tone present throughout Psych: COMMON NORMALS: Normal thought process present and speech normal A PPEARANCE: Yes grossly normal ATTITUDE: Yes calm and Yes engaged A CTIVITY/MOTOR BEHAVIOR: Yes appropriate eye contact SPEECH: Yes normal speech MOOD & AFFECT: Yes euthymic mood THOUGHT PROCESS: Normal thought process present THOUGHT CONTENT: Yes Normal thought content present A TTENTION/CONCENTRATION: Yes attention grossly intact MEMORY/COGNITION: Yes memory grossly intact Skin: COMMON NORMALS: no rashes or lesions noted GENERAL SKIN EXAM: no rashes or lesions noted Data 01/07/24 03:59 01/07/24 03:59 Micro: Microbiology 01/05/24 14:18 Blood Culture - Preliminary Blood NEGATIVE TO DATE 01/05/24 14:15 Blood Culture - Preliminary Blood NEGATIVE TO DATE A&P Assessment and plan (1) Diverticulitis: Diane Brad Perez is a 33 yo man w/ a hx of recurrent diverticulitis since age 16, GERD, tobacco use d/o (current 1ppd), R. kidney stone, who presented to the ED on 01/05/2024 w/ complaints of R. sided abdominal pain. THe patient states that he was hospitalized for one week for his diverticulitis during his first episode at age 16, and since then he has had at least 4 other flare ups requiring abx. In the ED, he had an episode of tachypnea to 25 breaths/min. His labs showed no leukocytosis, and except for an AGAP of 18, his CMP was not grossly abnormal. A CXR was done that showed and minimal left lower lobe linear infiltrate concerning for pneumonia vs atelectasis. A CT abdomen and pelvis was done that showed no obstructing renal or ureteral calculi, subsegmental atelectasis in the lower lung bases, and an irregular wall thickening in the proximal sigmoid colon in the L. lower quadrant with slight surrounding induration, concerning for diverticulitis vs colitis vs a neoplastic process. The patient was given 1L NS bolus, Morphine x 1, Zofran x1, and Zosyn prior to admission. On admission, patient was continued on Zosyn and IVF. He was made NPO except for sips of water. A RUQ US was obtained that showed a normal gall bladder. His Gen Surgeon was consulted. On 01/06/2024, the patient revealed that he started taking Amoxicillin on 01/02/2024, when he began to experience abdominal pain. He states that he took the amoxicillin until Thursday 01/04. #Recurrent diverticulitis. - Failed outpatient antibioitics. - D/c d5 1/2NS. Start NS. - Discontinued Zosyn since he already took Amoxicillin as outpatient. Start Fluoroquinolones w/ Metronidazole. - Gen Surg consulted. Transitioned to full liquid diet per GEN surge. Recs appreciated #L. lower lobe infiltrate: CT chest negative for a pneumonia. #GERD: PPI initiated. #Tobacco use d/o: nicotine patch #Hx of kidney stone: Not an issue at this time. DVT ppx: SCDs - Attestations 2 Medical Necessity Statement*: Patient remains hospitalized for his Recurrent Diverticulitis. Coding Level of Care Code 19498 Diagnoses Diverticulitis K57.92
[2024-01-07] MEDS: levofloxacin-dextrose 5 % 750 MG/150 ML PREMIX 100 MG IV (16:45)
[2024-01-07] MEDS: TRAMadol 50 mg Tablet 100 MG PO (19:55)
[2024-01-08 02:58] LABS: Basophils % 0.3 %; Eosinophils # 0.2 10^3/uL (0.0-0.8); Hematocrit 40.6 % (37-53); Lymphocytes % 16.5 %; Mean Corpuscular Hemoglobin 31.1 pg (27-33); Mean Platelet Volume 9.2 fL (7.4-10.4); Monocytes # 0.5 10^3/uL (0.2-0.9); Monocytes % 8.7 %; Neutrophils # 4.44 10^3/uL (1.8-7.7); Neutrophils % 71.3 %; Nucleated Red Blood Cells % 0 %; Platelet Count 177 10^3/cmm (157-399); Red Blood Count 4.56 10^6/uL (3.85-5.65); Red Cell Distribution Width 11.9 % (12.1-15.1); White Blood Count 6.23 10^3/uL (3.29-11.43)
[2024-01-08 03:20] LABS: Alanine Aminotransferase 24 U/L (0-41); Albumin Level 3.5 g/dL (3.5-5.2); Alkaline Phosphatase 92 U/L (40-130); Aspartate Amino Transferase 19 U/L (0-40); Blood Urea Nitrogen 11 mg/dL (6-20); Calcium 8.8 mg/dL (8.5-10.5); Carbon Dioxide 25 mmol/L (22-29); Chloride 100 mmol/L (98-107); Creatinine Clr Calc Pharmacy 141.9727; Globulin 3.4 g/dL (1.3-4.6); Glomerular Filtration Rate 84.5 mL/min (90-130); Glucose 87 mg/dL (65-115); Magnesium 1.9 mg/dL (1.7-2.3); Osmolality Calculated 273 mOsm/kg (285-295); Phosphorus 3.2 mg/dL (2.5-4.5); Sodium 132 mmol/L (136-145); Total Bilirubin 0.5 mg/dL (0.15-1.2); Total Protein 6.9 g/dL (6.6-8.7)
[2024-01-08 04:30] VITALS: BP 109/70; PULSE 68; RESP 16; TEMP 36.7; O2SAT 94
[2024-01-08] MEDS: metroNIDAZOLE IV 500 MG/100 ML PREMIX 100 MG IV ×2 (05:35→10:09)
[2024-01-08] MEDS: sodium chloride 0.9% 1,000 ML 100 ML IV (05:35)
[2024-01-08] MEDS: pantoprazole 40 mg SDV IVP (06:10)
[2024-01-08] MEDS: TRAMadol 50 mg Tablet 100 MG PO (07:16)
[2024-01-08 07:29] VITALS: BP 112/75; PULSE 69; RESP 18; TEMP 36.4; O2SAT 93
[2024-01-08] MEDS: nicotine 21 mg Patch 1 PATCH TRANSDERMA (08:12)
[2024-01-08] MEDS: levofloxacin-dextrose 5 % 750 MG/150 ML PREMIX 100 MG IV (10:06)
[2024-01-08 11:36] VITALS: BP 113/72; PULSE 73; RESP 18; TEMP 36.4; O2SAT 95
--- NOTE | 2024-01-08 11:42 | P.PN_ITS ---
Subjective 2 Subjective: Woke up 8/10 abdominal pain relieved w/ Tramadol. Shortly after taking the Tramadol, he felt nauseous. It resolved w/o need for medication. He thinks he was lying on that side of his body while sleeping. No f/c, dizziness, light headedness, dysuria, hematuria, increased urgency/freq. Vitals/I&O/Wt Last Vital Signs Temp 97.5 F L 01/08/24 11:36 Pulse 73 01/08/24 11:36 Resp 18 01/08/24 11:36 BP 113/72 01/08/24 11:36 Pulse Ox 95 01/08/24 11:36 O2 Del Method Room Air 01/08/24 11:36 O2 Flow Rate 2 01/05/24 15:19 01/07/24 01/08/24 01/08/24 22:59 06:59 14:59 Intake Total 906.667 / 1466.667 786.666 / 2253.333 905.000 / 905.000 Balance 906.667 / 1466.667 786.666 / 2253.333 905.000 / 905.000 Weight last 48 hrs Weight 123.632 kg Weight 125.872 kg Data 01/08/24 02:48 01/08/24 02:48 Coding Level of Care Code Acute Code for Chg Wu
--- NOTE | 2024-01-08 13:21 | P.DS_ITS ---
Discharge Providers Date of Admission: 01/05/24 15:45 Date of Discharge: January 08, 2024 Attending Provider at Admission: Anna Erazo MD Attending Provider at Discharge: Anna Erazo MD Diagnoses at Discharge Discharge Diagnosis (1) Diverticulitis: Status: Inactive Reason for Visit Reason for Visit: abd pain Hospital Course Hospital Course Brad Perez is a 33 yo man w/ a hx of recurrent diverticulitis since age 16, GERD, tobacco use d/o (current 1ppd), R. kidney stone, who presented to the ED on 01/05/2024 w/ complaints of R. sided abdominal pain. THe patient states that he was hospitalized for one week for his diverticulitis during his first episode at age 16, and since then he has had at least 4 other flare ups requiring abx. In the ED, he had an episode of tachypnea to 25 breaths/min. His labs showed no leukocytosis, and except for an AGAP of 18, his CMP was not grossly abnormal. A CXR was done that showed and minimal left lower lobe linear infiltrate concerning for pneumonia vs atelectasis. A CT abdomen and pelvis was done that showed no obstructing renal or ureteral calculi, subsegmental atelectasis in the lower lung bases, and an irregular wall thickening in the proximal sigmoid colon in the L. lower quadrant with slight surrounding induration, concerning for diverticulitis vs colitis vs a neoplastic process. The patient was given 1L NS bolus, Morphine x 1, Zofran x1, and Zosyn prior to admission. On admission, patient was continued on Zosyn and IVF. He was made NPO except for sips of water. A RUQ US was obtained that showed a normal gall bladder. His Gen Surgeon was consulted. On 01/06/2024, the patient revealed that he started taking Amoxicillin on 01/02/2024, when he began to experience abdominal pain. He states that he took the amoxicillin until Thursday 01/04. Given this, he was switched from Zosyn to Levofloxacin and Metronidazole. A CT chest was done that was negative for a pneumonia. His abd pain was controlled w/ Tramadol. His diet was advanced, and he tolerated a GI soft diet before he was discharged. He was was discharged w/ 14 days, per the surgeon's request, of Levofloxacin and Metronidazole. An appt was made for him to f/u with the Gen Surgeon in 14 days. #Recurrent diverticulitis #GERD #Tobacco use d/o: He was counselled against smoking #Hx of kidney stone: Physical Exam Const: GENERAL APPEARANCE: cooperative and comfortable NUTRITIONAL APPEARANCE: obese ORIENTATION/CONSCIOUSNESS: Yes awake, Yes oriented to person, Yes oriented to place and Yes oriented to time HENMT: COMMON NORMALS: normocephalic, atraumatic, external ears normal and Normal external nose present HEAD & SCALP: normocephalic and atraumatic FACE & SINUS: normal facial exam NOSE: Normal external nose present EXTERNAL EAR: Yes external ears normal MOUTH: Normal oral and palatal mucosa present THROAT: posterior oropharynx normal Eye: COMMON NORMALS: Equal, round and reactive pupils present and conjunctivae normal CONJUNCTIVA: Yes conjunctivae normal PUPIL: Yes Equal, round and reactive pupils present EOM: No EOM abnormal Neck/C-Spine: COMMON NORMALS: Thyroid normal GENERAL: Yes normal visual inspection and Yes trachea midline THYROID: Thyroid normal CAROTIDS: No bruit CERVICAL SPINE: Yes cervical ROM normal Lymph: LYMPHATIC: No lymphadenopathy Resp: OTHER: CTAB w/ no w/r/r Cardio: OTHER: RRR, no m/r/g or clicks GI: OTHER: BS, tenderness in the R. lumbar region of the abdomen (improved but same as 01/07/2024), no guarding rigidity, rebound tenderness or hepatosplenomegaly. Extremity: GENERAL: No clubbing, No cyanosis and No edema Neuro: COMMON NORMALS: CN's II-XII intact bilaterally SENSORIUM/ORIENTATION: Yes oriented to person, Yes oriented to place and Yes oriented to time CRANIAL NERVES: Yes CN normal except as noted SPEECH: speech normal SENSORY EXAM: No sensory level loss detected MOTOR EXAM: 5/5 motor strength present throughout and Normal motor muscle tone present throughout Psych: COMMON NORMALS: Normal thought process present and speech normal APPEARANCE: Yes grossly normal ATTITUDE: Yes calm and Yes engaged ACTIVITY/MOTOR BEHAVIOR: Yes appropriate eye contact SPEECH: Yes normal speech MOOD & AFFECT: Yes euthymic mood THOUGHT PROCESS: Normal thought process present THOUGHT CONTENT: Yes Normal thought content present ATTENTION/CONCENTRATION: Yes attention grossly intact MEMORY/COGNITION: Yes memory grossly intact Skin: COMMON NORMALS: no rashes or lesions noted GENERAL SKIN EXAM: no rashes or lesions noted Discharge Data Studies Completed and Pending Completed Studies During Hospitalization Category Date Time Status CT chest wo con [id number] Routine Cat Scan 01/06/24 14:[address] kidney stone [id number] Stat Cat Scan 01/05/24 12:18 Completed XR chest 1V portable [id number] Stat Exams 01/05/24 14:06 Completed US abdomen limited [id number] Routine Ultrasound 01/05/24 22:07 Completed Pending at discharge Category Date Time Status Blood Culture Stat Lab 01/05/24 14:15 Results Radiology Impressions Chest CT 01/06/24 14:56 IMPRESSION: Persistent bibasilar atelectasis with small right pleural effusion. 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 Laboratory Results WBC 6.23 10^3/uL (3.29-11.43) 01/08/24 02:48 RBC 4.56 10^6/uL (3.85-5.65) 01/08/24 02:48 Hgb 14.20 g/dL (11.27-16.99) 01/08/24 02:48 Hct 40.6 % (37-53) 01/08/24 02:48 MCV 89.0 fl (82-101) 01/08/24 02:48 MCH 31.1 pg (27-33) 01/08/24 02:48 MCHC 35.0 g/dL (30-55) 01/08/24 02:48 RDW 11.9 % (12.1-15.1) L 01/08/24 02:48 Plt Count 177 10^3/cmm (157-399) 01/08/24 02:48 MPV 9.2 fL (7.4-10.4) 01/08/24 02:48 Neut % (Auto) 71.3 % 01/08/24 02:48 Lymph % (Auto) 16.5 % 01/08/24 02:48 [place] % (Auto) 8.7 % 01/08/24 02:48 Eos % (Auto) 3.0 % 01/08/24 02:48 Baso % (Auto) 0.3 % 01/08/24 02:48 Neut # (Auto) 4.44 10^3/uL (1.8-7.7) 01/08/24 02:48 Lymph # (Auto) 1.0 10^3/uL (0.8-4.8) 01/08/24 02:48 [place] # (Auto) 0.5 10^3/uL (0.2-0.9) 01/08/24 02:48 Eos # (Auto) 0.2 10^3/uL (0.0-0.8) 01/08/24 02:48 Baso # (Auto) 0.0 10^3/uL (0.0-0.1) 01/08/24 02:48 Nucleated RBC % (auto) 0 % 01/08/24 02:48 Nucleated RBCs # 0.0 /100WBC 01/08/24 02:48 PT 13.90 SECONDS (12.1-14.9) 01/06/24 04:22 INR 1.04 (0.8-1.2) 01/06/24 04:22 APTT 28.4 SECONDS (23.9-36.7) 01/06/24 04:22 Sodium 132 mmol/L (136-145) L 01/08/24 02:48 Potassium 4.0 mmol/L (3.5-5.1) 01/08/24 02:48 Chloride 100 mmol/L (98-107) 01/08/24 02:48 Carbon Dioxide 25 mmol/L (22-29) 01/08/24 02:48 Anion Gap 11.0 (5-19) 01/08/24 02:48 BUN 11 mg/dL (6-20) 01/08/24 02:48 Creatinine 1.0 mg/dL (0.7-1.2) 01/08/24 02:48 GFR Calculation 84.5 mL/min (90-130) L 01/08/24 02:48 Glucose 87 mg/dL (65-115) 01/08/24 02:48 Calculated Osmolality 273 mOsm/kg (285-295) L 01/08/24 02:48 Lactic Acid 1.4 mmol/L (0.5-2.2) 01/05/24 14:15 Calcium 8.8 mg/dL (8.5-10.5) 01/08/24 02:48 Phosphorus 3.2 mg/dL (2.5-4.5) 01/08/24 02:48 Magnesium 1.9 mg/dL (1.7-2.3) 01/08/24 02:48 Total Bilirubin 0.5 mg/dL (0.15-1.2) 01/08/24 02:48 AST 19 U/L (0-40) 01/08/24 02:48 ALT 24 U/L (0-41) 01/08/24 02:48 Alkaline Phosphatase 92 U/L (40-130) 01/08/24 02:48 Total Protein 6.9 g/dL (6.6-8.7) 01/08/24 02:48 Albumin 3.5 g/dL (3.5-5.2) 01/08/24 02:48 Globulin 3.4 g/dL (1.3-4.6) 01/08/24 02:48 Lipase 30 U/L (13-60) 01/05/24 11:43 Urine Color Dark yellow (Yellow) 01/05/24 14:03 Urine Appearance Clear (CLEAR) 01/05/24 14:03 Urine pH 5 (5-7) 01/05/24 14:03 Ur Specific [place] 1.025 (1.005-1.030) 01/05/24 14:03 Urine Protein Neg (Negative) 01/05/24 14:03 Urine Glucose (UA) Norm (Normal) 01/05/24 14:03 Urine Ketones Negative (Negative) 01/05/24 14:03 Urine Blood Neg (Negative) 01/05/24 14:03 Urine Nitrate Negative (Negative) 01/05/24 14:03 Urine Bilirubin Neg (Negative) 01/05/24 14:03 Urine Urobilinogen Norm mg/dL (Negative) 01/05/24 14:03 Ur Leukocyte Esterase Negative (Negative) 01/05/24 14:03 Vitals Last Vital Signs Temp 97.5 F L 01/08/24 11:36 Pulse 73 01/08/24 11:36 Resp 18 01/08/24 11:36 BP 113/72 01/08/24 11:36 Pulse Ox 95 01/08/24 11:36 O2 Del Method Room Air 01/08/24 11:36 O2 Flow Rate 2 01/05/24 15:19 Discharge Plan Discharge Patient Disposition: Home Condition: Stable Prescriptions: New tramadol 50 mg Tablet 100 mg PO Q6H PRN (Reason: Moderate Pain) 7 Days Qty: 28 0RF levofloxacin 750 mg tablet 750 mg PO DAILY 14 Days Qty: 14 0RF metronidazole 500 mg tablet 500 mg PO QID 14 Days Qty: 56 0RF Continued Headache Relief (HMO-[id number]-emg) 250-250-65 mg tablet 1 tab PO Q6H PRN (Reason: Headache) pantoprazole [Protonix] 40 mg tablet,delayed release (DR/EC) 40 mg PO BID 42 Days Qty: 84 0RF Tylenol Extra Strength 500 mg Tablet 500 mg PO Q6H PRN (Reason: Pain) Discharge Orders: Discharge Order (Routine); Ordered 01/08/24 Ordered By: Anna Erazo Referrals: John Gamez DO [Physician] - 2 weeks (We have notified your physician's clinic of the need for a follow-up appointment to be scheduled. If you have not heard from them within the next 2 business days, please call them directly. ) Discharge Diet: Advance as tolerated Discharge Activity: Resume usual activity and Increase activity as tolerated Patient Instructions: Metronidazole (By mouth) (Flagyl, Flagyl 375, Flagyl ER), Tramadol (By mouth), Levofloxacin (By mouth), Diverticulitis (DC), Bacterial Pneumonia (DC), Colonoscopy (GEN), Opioid Safety Discharge Attestations Time Spent in Discharge Care*: less than 30 min Quality Metrics Clinical Quality Measures [ No reported AMI, CVA or VTE this stay] Coding Level of Care Code 17682 Diagnoses Diverticulitis K57.92
== END 2024-01-08 13:40 | disposition home or self-care (01) | DRG 392 ==
LOC: ER 12:18 → MEDSURG 17:07
PROVIDERS: Emergency Medicine; Admitting Provider Internal Medicine; Emergency Provider Family Medicine; Visit Provider Internal Medicine
DX: K57.32 Diverticulitis of large intestine without perforation or abscess without bleeding (principal); F17.210 Nicotine dependence, cigarettes, uncomplicated; K21.9 Gastro-esophageal reflux disease without esophagitis; R00.0 Tachycardia, unspecified
CPT/HCPCS: 36415; 71045; 71250; 74176; 76705; 80053; 81003; 83605; 83690; 83735; 84100; 85025; 85610; 85730; 87040; 96365; 96375; 99285; C9113; J1956; J2270; J2405; J2543; J3411; J3490; J7030; J7799

== ENCOUNTER 2024-01-13 21:34 | Emergency (ER) | payer SELFPAY ==
[2024-01-13 21:57] VITALS: BP 126/80; PULSE 86; RESP 22; TEMP 37; O2SAT 93; BMI 34.2
[2024-01-13 22:19] LABS: Basophils % 0.3 %; Eosinophils # 0.3 10^3/uL (0.0-0.8); Eosinophils % 2.6 %; Hematocrit 49.1 % (37-53); Lymphocytes # 0.8 10^3/uL (0.8-4.8); Lymphocytes % 6.9 %; Mean Corpuscular HGB Conc 33.6 g/dL (30-55); Mean Corpuscular Hemoglobin 30.5 pg (27-33); Mean Corpuscular Volume 90.8 fl (82-101); Mean Platelet Volume 9.7 fL (7.4-10.4); Monocytes # 1.2 10^3/uL (0.2-0.9); Monocytes % 9.4 %; Neutrophils # 9.84 10^3/uL (1.8-7.7); Neutrophils % 80.4 %; Nucleated Red Blood Cells % 0 %; Platelet Count 234 10^3/cmm (157-399); Red Blood Count 5.41 10^6/uL (3.85-5.65); Red Cell Distribution Width 12.7 % (12.1-15.1); White Blood Count 12.24 10^3/uL (3.29-11.43)
[2024-01-13 22:38] LABS: Alanine Aminotransferase 25 U/L (0-41); Albumin Level 4.2 g/dL (3.5-5.2); Alkaline Phosphatase 92 U/L (40-130); Aspartate Amino Transferase 14 U/L (0-40); Blood Urea Nitrogen 12 mg/dL (6-20); Calcium 9.2 mg/dL (8.5-10.5); Carbon Dioxide 26 mmol/L (22-29); Chloride 98 mmol/L (98-107); Creatinine Clr Calc Pharmacy 114.4886; Globulin 3.9 g/dL (1.3-4.6); Glomerular Filtration Rate 68.5 mL/min (90-130); Glucose 133 mg/dL (65-115); Osmolality Calculated 284 mOsm/kg (285-295); Sodium 136 mmol/L (136-145); Total Bilirubin 0.5 mg/dL (0.15-1.2); Total Protein 8.1 g/dL (6.6-8.7)
--- NOTE | 2024-01-13 22:45 | ED_ITS ---
HPI - Abdominal Pain 2 General: Chief Complaint: Abdominal Pain Stated Complaint: ABD Pain Time Seen by Provider: 01/13/24 22:09 History of Present Illness: Patient presents to the ER with complaints of right upper quadrant pain with nausea vomiting. Patient states has been treated for diverticulitis and is on pain medicine and antibiotics. Patient says also been diagnosed with pneumonia. He says the pain medicine is just not working and the pain is exactly the same as it was when the diverticulitis flared up. Review of Systems 2 General: Reports: 10 or more systems reviewed and unremarkable except in HPI and below PFSH ED 2 PFSH: Medical History (Updated 01/14/24 @ 02:53 by Simba Michael DO) Diverticulitis Diverticular disease Calcium urolithiasis Ureteral stone Family History Mother Diabetes Cirrhosis of liver Social History Smoking and tobacco/nicotine status: current every day tobacco/nicotine user cigarettes Packs smoked per day: 1 [ Other cigarette details: started smoking in 2005 until 2012. Quit for 7 years. 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 Current occupational exposures/hazards: Yes Current gender identity: Male Physical Exam 2 Const: COMMON NORMALS: no acute distress, average body habitus, patient oriented x3, no limitations, healthy appearing, alert and well nourished HENMT: COMMON NORMALS: normocephalic, atraumatic, hearing grossly normal bilaterally, external ears normal, EAC's normal, Normal external nose present, moist oral mucous membranes and oropharynx normal HEAD & SCALP: normocephalic and atraumatic NOSE: Normal external nose present EXTERNAL EAR: Yes external ears normal EXTERNAL AUDITORY CANAL: EAC's normal Neck/C-Spine: COMMON NORMALS: no JVD Chest: COMMONS NORMALS: normal inspection of the chest and normal palpation of entire chest wall Resp: COMMON NORMALS: normal respiratory effort, No retractions, No use of accessory muscles and clear to auscultation bilaterally AUSCULTATION: clear to auscultation bilaterally Cardio: COMMON NORMALS: no JVD, regular rate, regular rhythm, S1 normal heart sound present, S2 normal heart sound present, No gallops present (Cardio), No clicks present (Cardio), No murmurs present (Cardio) and No rub (Cardio) R ATE: regular rate RHYTHM: regular rhythm HEART SOUNDS: S1 normal heart sound present and S2 normal heart sound present GI: COMMON NORMALS: Normal to inspection, nondistended, normoactive bowel sounds present, Soft to palpation, No hepatosplenomegaly present and no masses; negative for non-tender (Tender to palpate) PALPATION: Yes Soft to palpation and Yes No hepatosplenomegaly present Neuro: COMMON NORMALS: patient oriented x3 SENSORIUM/ORIENTATION: Yes alert Course 2 Vital Signs: Vital signs: Vital Signs Temperature 98.6 F 01/14/24 03:31 Pulse Rate 84 01/14/24 03:31 Respiratory Rate 20 H 01/14/24 03:31 Blood Pressure 99/60 01/14/24 03:31 Pulse Oximetry 92 01/14/24 03:31 Oxygen Delivery Me thod Nasal Cannula 01/13/24 22:57 Oxygen Flow Rate 2 01/13/24 22:57 MDM - Abdominal Pain Medical Decision Making Lab work was obtained that included CBC CMP urine urine drug screen showed white count is 12.2, BUN/creatinine is 12 and 1.2, urine drug screen is positive for opiates phencyclidine and marijuana. Patient was given multiple doses of 4 mg of morphine along with 2 bags of normal saline and 4 mg of Zofran while in ER. Patient's pain is improved. Patient be discharged on hydrocodone and told to continue his antibiotics. Differential Diagnosis Likely diverticulitis; Unlikely abdominal pain, acute appendicitis, calculus of kidney, constipation, endometriosis, gastroenteritis, pancreatitis or small bowel obstruction Medical Records I reviewed the patient's medical records. Lab Data I reviewed the patient's lab results. 01/13/24 22:15 01/13/24 22:15 Labs/Radiology: Laboratory Results WBC 12.24 10^3/uL (3.29-11.43) H 01/13/24 22:15 RBC 5.41 10^6/uL (3.85-5.65) 01/13/24 22:15 Hgb 16.50 g/dL (11.27-16.99) 01/13/24 22:15 Hct 49.1 % (37-53) 01/13/24 22:15 MCV 90.8 fl (82-101) 01/13/24 22:15 MCH 30.5 pg (27-33) 01/13/24 22:15 MCHC 33.6 g/dL (30-55) 01/13/24 22:15 RDW 12.7 % (12.1-15.1) 01/13/24 22:15 Plt Count 234 10^3/cmm (157-399) 01/13/24 22:15 MPV 9.7 fL (7.4-10.4) 01/13/24 22:15 Neut % (Auto) 80.4 % 01/13/24 22:15 Lymph % (Auto) 6.9 % 01/13/24 22:15 [place] % (Auto) 9.4 % 01/13/24 22:15 Eos % (Auto) 2.6 % 01/13/24 22:15 Baso % (Auto) 0.3 % 01/13/24 22:15 Neut # (Auto) 9.84 10^3/uL (1.8-7.7) H 01/13/24 22:15 Lymph # (Auto) 0.8 10^3/uL (0.8-4.8) 01/13/24 22:15 [place] # (Auto) 1.2 10^3/uL (0.2-0.9) H 01/13/24 22:15 Eos # (Auto) 0.3 10^3/uL (0.0-0.8) 01/13/24 22:15 Baso # (Auto) 0.0 10^3/uL (0.0-0.1) 01/13/24 22:15 Nucleated RBC % (auto) 0 % 01/13/24 22:15 Nucleated RBCs # 0.0 /100WBC 01/13/24 22:15 Sodium 136 mmol/L (136-145) 01/13/24 22:15 Potassium 4.0 mmol/L (3.5-5.1) 01/13/24 22:15 Chloride 98 mmol/L (98-107) 01/13/24 22:15 Carbon Dioxide 26 mmol/L (22-29) 01/13/24 22:15 Anion Gap 16.0 (5-19) 01/13/24 22:15 BUN 12 mg/dL (6-20) 01/13/24 22:15 Creatinine 1.2 mg/dL (0.7-1.2) 01/13/24 22:15 GFR Calculation 68.5 mL/min (90-130) L 01/13/24 22:15 Glucose 133 mg/dL (65-115) H 01/13/24 22:15 Calculated Osmolality 284 mOsm/kg (285-295) L 01/13/24 22:15 Calcium 9.2 mg/dL (8.5-10.5) 01/13/24 22:15 Total Bilirubin 0.5 mg/dL (0.15-1.2) 01/13/24 22:15 AST 14 U/L (0-40) 01/13/24 22:15 ALT 25 U/L (0-41) 01/13/24 22:15 Alkaline Phosphatase 92 U/L (40-130) 01/13/24 22:15 Total Protein 8.1 g/dL (6.6-8.7) 01/13/24 22:15 Albumin 4.2 g/dL (3.5-5.2) 01/13/24 22:15 Globulin 3.9 g/dL (1.3-4.6) 01/13/24 22:15 Urine Color Dark yellow (Yellow) 01/14/24 02:05 Urine Appearance Clear (CLEAR) 01/14/24 02:05 Urine pH 5 (5-7) 01/14/24 02:05 Ur Specific [place] 1.025 (1.005-1.030) 01/14/24 02:05 Urine Protein Neg (Negative) 01/14/24 02:05 Urine Glucose (UA) Norm (Normal) 01/14/24 02:05 Urine Ketones Negative (Negative) 01/14/24 02:05 Urine Blood Neg (Negative) 01/14/24 02:05 Urine Nitrate Negative (Negative) 01/14/24 02:05 Urine Bilirubin Neg (Negative) 01/14/24 02:05 Urine Urobilinogen Norm mg/dL (Negative) 01/14/24 02:05 Ur Leukocyte Esterase Negative (Negative) 01/14/24 02:05 Urine Opiates Screen Positive ng/mL (Negative) H 01/14/24 02:05 Ur Barbiturates Screen Negative ng/mL (Negative) 01/14/24 02:05 Ur Phencyclidine Scrn Positive ng/mL (Negative) H 01/14/24 02:05 Ur Amphetamines Screen Negative ng/mL (Negative) 01/14/24 02:05 U Benzodiazepines Scrn Negative ng/mL (Negative) 01/14/24 02:05 Urine Cocaine Screen Negative ng/mL (Negative) 01/14/24 02:05 U Marijuana (THC) Screen Positive ng/mL (Negative) H 01/14/24 02:05 No radiology studies performed this visit Discharge Plan Discharge Patient Disposition: Home Clinical Impression: Diverticulitis Condition: Stable Prescriptions: New hydrocodone-acetaminophen 5-325 mg tablet 1 tab PO Q6H PRN (Reason: pain) Qty: 14 0RF No Action Headache Relief ([id number]) 250-250-65 mg tablet 1 tab PO Q6H PRN (Reason: Headache) pantoprazole [Protonix] 40 mg tablet,delayed release (DR/EC) 40 mg PO BID 42 Days Qty: 84 0RF Tylenol Extra Strength 500 mg Tablet 500 mg PO Q6H PRN (Reason: Pain) tramadol 50 mg Tablet 100 mg PO Q6H PRN (Reason: Moderate Pain) 7 Days Qty: 28 0RF levofloxacin 750 mg tablet 750 mg PO DAILY 14 Days Qty: 14 0RF metronidazole 500 mg tablet 500 mg PO QID 14 Days Qty: 56 0RF Discharge Orders: Discharge ED (Routine); Ordered 01/14/24 Ordered By: Simba Michael Patient Instructions: Diverticulitis, Opioid Safety, Pain Management Activity Restrictions/Additional Instructions: Please take all medicine as prescribed please continue your antibiotics as directed. Please follow-up with your family practice physician Coding Level of Care Code ED Investor Relations Director for Stepan Washburn
[2024-01-13 22:52] VITALS: RESP 16; O2SAT 94
[2024-01-13] MEDS: ondansetron 2 mg/ML SDV 2 mL 4 MG IVP (22:52)
[2024-01-13] MEDS: morphine 4 mg/mL SDV 1 mL IVP ×2 (22:52→23:45)
[2024-01-13] MEDS: sodium chloride 0.9% 1,000 ML 999 ML IV ×2 (22:53→23:45)
[2024-01-13 22:57] VITALS: BP 99/60; PULSE 84; RESP 18; O2SAT 94
[2024-01-13 23:45] VITALS: RESP 20; O2SAT 92
[2024-01-14] MEDS: morphine 4 mg/mL SDV 1 mL IVP (01:48)
[2024-01-14 02:15] LABS: Add Urine Microscopic? NO; Charge for UA Resulting for Rev
[2024-01-14 02:23] LABS: Bilirubin Urine Neg (Negative); Blood Urine Neg (Negative); Glucose Urine UA Norm (Normal); Ketones Urine Negative (Negative); Leukocyte Esterase Urine Negative (Negative); Nitrate Urine Negative (Negative); Protein Urine Neg (Negative); Specific Gravity, Urine 1.025 (1.005-1.030); Urine Appearance Clear (CLEAR); Urine Color Dark Yellow (Yellow); Urobilinogen Urine Norm (Negative); pH Urine 5 (5-7)
[2024-01-14 02:26] LABS: Amphetamines Screen Urine Negative (Negative); Barbiturates Screen Urine Negative (Negative); Benzodiazepines Screen Urine Negative (Negative); Cocaine Screen Urine Negative (Negative); Opiate Screen Urine Positive (Negative); PCP Screen Urine Positive (Negative); THC Screen Urine Positive (Negative)
[2024-01-14] MEDS: HYDROcodone-acetaminophen 10-325 mg Tablet 1 TAB PO (03:20)
[2024-01-14 03:31] VITALS: BP 99/60; PULSE 84; RESP 20; TEMP 37; O2SAT 92
== END 2024-01-14 03:32 | disposition home or self-care (01) ==
PROVIDERS: Emergency Provider Emergency Medicine
DX: K57.92 Diverticulitis of intestine, part unspecified, without perforation or abscess without bleeding (principal); F17.210 Nicotine dependence, cigarettes, uncomplicated
CPT/HCPCS: 80053; 80306; 81003; 85025; 96361; 96374; 96375; 99284; J2270; J2405; J7030

== ENCOUNTER 2024-02-02 11:09 | Emergency (ER) | payer SELFPAY ==
[2024-02-02 11:21] VITALS: BP 120/80; PULSE 84; RESP 18; TEMP 36.8; O2SAT 98; BMI 34.9
--- NOTE | 2024-02-02 12:49 | USR_ITS ---
PROCEDURE INFORMATION: Exam: US Duplex Right Lower Extremity Veins, Limited Exam date and time: 02/02/2024 1:46 PM Age: 34 years old Clinical indication: Pain; Leg, lower; Right; Additional info: Right calf swelling, tender to palpate, immobility TECHNIQUE: Imaging protocol: Real-time duplex ultrasound of the right extremity with 2-D buckner scale, color Doppler flow and spectral waveform analysis including responses to compression and other maneuvers (when performed) with image documentation. Limited exam was focused on the right lower extremity veins. COMPARISON: CT kidney stone [id number] 01/05/2024 12:58 PM FINDINGS: Veins: Occlusive thrombus extending from the proximal femoral vein to the posterior tibial [place] US/[place] [id number] IMPRESSION: Occlusive thrombus extending from the proximal femoral vein to the posterior tibial vein.
[2024-02-02 12:56] VITALS: BP 134/83; PULSE 82; O2SAT 99
--- NOTE | 2024-02-02 12:59 | ED_ITS ---
HPI - Extremity Problem 2 General: Chief complaint: Extremity Problem,Nontraumatic Stated complaint: right leg pain, swelling, very red Time Seen by Provider: 02/02/24 11:43 History of Present Illness: To the ER with complaints of 3-day history of right lower calf swelling and pain. He does have worsening pain with palpation and movement. Patient is currently on antibiotics from hospitalization on 01/04/2024 for pneumonia and diverticulitis. Patient sees Dr. Gamez for this but that his feet is feeling much better. Patient is never had a blood clot before. Patient is on no anticoagulation. Review of Systems 2 General: Reports: 10 or more systems reviewed and unremarkable except in HPI and below PFSH ED 2 PFSH: Medical History Diverticulitis Diverticular disease Calcium urolithiasis Ureteral stone Family History Mother Diabetes Cirrhosis of liver Social History Smoking and tobacco/nicotine status: current every day tobacco/nicotine user cigarettes Packs smoked per day: 1 [ Other cigarette details: started smoking in 2005 until 2012. Quit for 7 years. 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 Current occupational exposures/hazards: Yes Current gender identity: Male Physical Exam 2 Const: COMMON NORMALS: no acute distress, average body habitus, patient oriented x3, no limitations, healthy appearing, alert and well nourished HENMT: COMMON NORMALS: normocephalic, atraumatic, hearing grossly normal bilaterally, external ears normal, Normal external nose present, moist oral mucous membranes and oropharynx normal HEAD & SCALP: normocephalic and atraumatic NOSE: Normal external nose present EXTERNAL EAR: Yes external ears normal Neck/C-Spine: COMMON NORMALS: no JVD Chest: COMMONS NORMALS: normal inspection of the chest and normal palpation of entire chest wall Resp: COMMON NORMALS: normal respiratory effort, No retractions, No use of accessory muscles and clear to auscultation bilaterally AUSCULTATION: clear to auscultation bilaterally Cardio: COMMON NORMALS: no JVD, regular rate, regular rhythm, S1 normal heart sound present, S2 normal heart sound present, No gallops present (Cardio), No clicks present (Cardio), No murmurs present (Cardio) and No rub (Cardio) R ATE: regular rate RHYTHM: regular rhythm HEART SOUNDS: S1 normal heart sound present and S2 normal heart sound present GI: COMMON NORMALS: Normal to inspection, nondistended, normoactive bowel sounds present, Soft to palpation, non-tender, No hepatosplenomegaly present and no masses PALPATION: Yes Soft to palpation and Yes No hepatosplenomegaly present Extremity: NARRATIVE EXTREMITY EXAM: Right calf nonerythematous but swollen compared to the left calf. Tender to touch over the calf region but not the Achilles or the popliteal fossa region. Neuro: COMMON NORMALS: patient oriented x3 SENSORIUM/ORIENTATION: Yes alert Course 2 Vital Signs: Vital signs: Vital Signs Temperature 98.2 F 02/02/24 14:50 Pulse Rate 74 02/02/24 14:50 Respiratory Rate 18 02/02/24 14:50 Blood Pressure 130/69 02/02/24 14:50 Pulse Oximetry 100 02/02/24 14:50 Oxygen Delivery Me thod Room Air 02/02/24 14:29 MDM - Extremity (Nontraumatic) Medical Decision Making Include CBC and CMP which essentially unremarkable. Venous duplex ultrasound the right lower extremity showed extensive thrombus from the proximal femoral vein to the posterior tibial vein. Patient is self-pay. Patient will be given a prescription for Xarelto as well as a coupon for the first 30 days free. Patient is working with somebody already to try to get him set up for Medicaid. Differential Diagnosis Likely deep vein thrombosis of lower extremity; Unlikely herpes zoster, gout, cellulitis, superficial thrombophlebitis, deep venous thrombosis of upper extremity or lower extremity edema Medical Records I reviewed the patient's medical records. Lab Data I reviewed the patient's lab results. 02/02/24 13:03 02/02/24 13:03 Radiology Impressions Venous Duplex 02/02/24 12:49 IMPRESSION: Occlusive thrombus extending from the proximal femoral vein to the posterior tibial vein. ADDENDUM: 02/02/24 1452 THIS REPORT CONTAINS FINDINGS THAT MAY BE CRITICAL TO PATIENT CARE. The findings were verbally communicated via telephone conference at 2:18 PM CDT on 02/02/2024 with Simba Michael. The findings were acknowledged and understood. Laboratory Results WBC 6.28 10^3/uL (3.29-11.43) 02/02/24 13:03 RBC 5.25 10^6/uL (3.85-5.65) 02/02/24 13:03 Hgb 15.90 g/dL (11.27-16.99) 02/02/24 13:03 Hct 47.3 % (37-53) 02/02/24 13:03 MCV 90.1 fl (82-101) 02/02/24 13:03 MCH 30.3 pg (27-33) 02/02/24 13:03 MCHC 33.6 g/dL (30-55) 02/02/24 13:03 RDW 12.2 % (12.1-15.1) 02/02/24 13:03 Plt Count 213 10^3/cmm (157-399) 02/02/24 13:03 MPV 9.9 fL (7.4-10.4) 02/02/24 13:03 Neut % (Auto) 67.8 % 02/02/24 13:03 Lymph % (Auto) 17.2 % 02/02/24 13:03 [place] % (Auto) 10.2 % 02/02/24 13:03 Eos % (Auto) 4.3 % 02/02/24 13:03 Baso % (Auto) 0.3 % 02/02/24 13:03 Neut # (Auto) 4.26 10^3/uL (1.8-7.7) 02/02/24 13:03 Lymph # (Auto) 1.1 10^3/uL (0.8-4.8) 02/02/24 13:03 [place] # (Auto) 0.6 10^3/uL (0.2-0.9) 02/02/24 13:03 Eos # (Auto) 0.3 10^3/uL (0.0-0.8) 02/02/24 13:03 Baso # (Auto) 0.0 10^3/uL (0.0-0.1) 02/02/24 13:03 Nucleated RBC % (auto) 0 % 02/02/24 13:03 Nucleated RBCs # 0.0 /100WBC 02/02/24 13:03 Sodium 140 mmol/L (136-145) 02/02/24 13:03 Potassium 4.6 mmol/L (3.5-5.1) 02/02/24 13:03 Chloride 102 mmol/L (98-107) 02/02/24 13:03 Carbon Dioxide 27 mmol/L (22-29) 02/02/24 13:03 Anion Gap 15.6 (5-19) 02/02/24 13:03 BUN 11 mg/dL (6-20) 02/02/24 13:03 Creatinine 0.9 mg/dL (0.7-1.2) 02/02/24 13:03 GFR Calculation 95.5 mL/min (90-130) 02/02/24 13:03 Glucose 91 mg/dL (65-115) 02/02/24 13:03 Calculated Osmolality 289 mOsm/kg (285-295) 02/02/24 13:03 Calcium 9.2 mg/dL (8.5-10.5) 02/02/24 13:03 Total Bilirubin 0.4 mg/dL (0.15-1.2) 02/02/24 13:03 AST 24 U/L (0-40) 02/02/24 13:03 ALT 33 U/L (0-41) 02/02/24 13:03 Alkaline Phosphatase 107 U/L (40-130) 02/02/24 13:03 Total Protein 8.3 g/dL (6.6-8.7) 02/02/24 13:03 Albumin 4.1 g/dL (3.5-5.2) 02/02/24 13:03 Globulin 4.2 g/dL (1.3-4.6) 02/02/24 13:03 All radiology interpretation(s) finalized by discharge Discharge Plan Discharge Patient Disposition: Home Clinical Impression: Deep vein thrombosis of lower extremity Qualifiers: Affected thrombotic vein of extremity: unspecified lower extremity distal vein Chronicity: acute Laterality: right Qualified Code(s): I82.4Z1 - Acute embolism and thrombosis of unspecified deep veins of right distal lower extremity Condition: Stable Prescriptions: New Xarelto DVT-PE Treat 30d Start 15 mg (42)- 20 mg (9) tablets,dose pack See Protocol PO DAILY Qty: 51 0RF Protocol: Xarelto Dose Pack Condition: Start Dose/Route: 15 mg twice daily Instruction: after 21 days, Condition: Transition to Dose/Route: 20 mg once daily Instruction: thereafter Rx Instructions: orally; No Action Headache Relief (IGG-[id number]-[id number]) 250-250-65 mg tablet 1 tab PO Q6H PRN (Reason: Headache) tramadol 50 mg tablet 100 mg PO Q6H PRN (Reason: pain) Qty: 40 0RF amoxicillin-pot clavulanate 875-125 mg tablet 1 tab PO BID 14 Days Qty: 28 0RF acetaminophen [Tylenol Extra Strength] 500 mg Tablet 500 mg PO Q6H PRN (Reason: Pain) Discharge Orders: Discharge ED (Routine); Ordered 02/02/24 Ordered By: Simba Michael Patient Instructions: Deep Vein Thrombosis (ED) Activity Restrictions/Additional Instructions: Lab work was unremarkable, your ultrasound showed you have an extensive blood clot from essentially your groin all the way down to your ankle. You will be placed on Xarelto as a blood thinner to be given a coupon card to get the first 30 days free. Please continue to work with the person try to get the Medicaid. You may also benefit from if you do not get Medicaid from a prescription assistance program. Please follow-up with your family practice doctor within next 7 to 10 days to start this process. Coding Level of Care Code ED Process Development Associate for Stepan Washburn
[2024-02-02 13:13] LABS: Basophils % 0.3 %; Eosinophils # 0.3 10^3/uL (0.0-0.8); Eosinophils % 4.3 %; Hematocrit 47.3 % (37-53); Lymphocytes # 1.1 10^3/uL (0.8-4.8); Lymphocytes % 17.2 %; Mean Corpuscular HGB Conc 33.6 g/dL (30-55); Mean Corpuscular Hemoglobin 30.3 pg (27-33); Mean Corpuscular Volume 90.1 fl (82-101); Mean Platelet Volume 9.9 fL (7.4-10.4); Monocytes # 0.6 10^3/uL (0.2-0.9); Monocytes % 10.2 %; Neutrophils # 4.26 10^3/uL (1.8-7.7); Neutrophils % 67.8 %; Nucleated Red Blood Cells % 0 %; Platelet Count 213 10^3/cmm (157-399); Red Blood Count 5.25 10^6/uL (3.85-5.65); Red Cell Distribution Width 12.2 % (12.1-15.1); White Blood Count 6.28 10^3/uL (3.29-11.43)
[2024-02-02 13:31] LABS: Alanine Aminotransferase 33 U/L (0-41); Albumin Level 4.1 g/dL (3.5-5.2); Alkaline Phosphatase 107 U/L (40-130); Anion Gap 15.6 (5-19); Aspartate Amino Transferase 24 U/L (0-40); Blood Urea Nitrogen 11 mg/dL (6-20); Calcium 9.2 mg/dL (8.5-10.5); Carbon Dioxide 27 mmol/L (22-29); Chloride 102 mmol/L (98-107); Creatinine Clr Calc Pharmacy 154.1075; Globulin 4.2 g/dL (1.3-4.6); Glomerular Filtration Rate 95.5 mL/min (90-130); Glucose 91 mg/dL (65-115); Osmolality Calculated 289 mOsm/kg (285-295); Potassium 4.6 mmol/L (3.5-5.1); Sodium 140 mmol/L (136-145); Total Bilirubin 0.4 mg/dL (0.15-1.2); Total Protein 8.3 g/dL (6.6-8.7)
[2024-02-02 14:29] VITALS: BP 130/69; PULSE 74; O2SAT 100
[2024-02-02 14:50] VITALS: BP 130/69; PULSE 74; RESP 18; TEMP 36.8; O2SAT 100
== END 2024-02-02 14:52 | disposition home or self-care (01) ==
PROVIDERS: Emergency Provider Emergency Medicine
DX: I82.4Z1 Acute embolism and thrombosis of unspecified deep veins of right distal lower extremity (principal); F17.210 Nicotine dependence, cigarettes, uncomplicated
CPT/HCPCS: 36415; 80053; 85025; 93971; 99284

== ENCOUNTER 2024-02-08 09:57 | Inpatient (IN) | payer SELFPAY ==
[2024-02-08] VITALS (11 sets, daily range): BP systolic 112–136; BP diastolic 76–92; PULSE 66–85; RESP 16–18; TEMP 36.7–37; O2SAT 92–97; BMI 34.2
--- NOTE | 2024-02-08 10:00 | ECG_ITS ---
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 Measurements Intervals [place] Rate: 88 P: 34 [place]: 158 QRS: 43 QRSD: 109 T: 36 QT: 346 QTc: 420 Interpretive Statements SINUS RHYTHM INCOMPLETE RIGHT BUNDLE BRANCH BLOCK [90+ ms QRS DURATION, TERMINAL R IN V1/V2, 40+ ms S IN I/aVL/V4/V5/V6] No previous ECG available for comparison Electronically Signed On 02-08-2024 23:53:51 CDT by Sherice North M.D. [id number]
--- NOTE | 2024-02-08 10:35 | ED_ITS ---
HPI - Chest Pain 2 General: Chief Complaint: Chest Pain Stated Complaint: chest pain Time Seen by Provider: 02/08/24 10:34 Source: patient Mode of arrival: ambulatory History of Present Illness: 34-year-old male presents emergency room with complaint of sudden onset of chest pain and tightness and shortness of breath this morning minimal exertion causing significant dyspnea. He was seen 6 days ago and found to have a DVT he was started on Eliquis but unfortunately due to some logistical issues did not get the medication filled yet. No fever sweats or chills. MD complaint: chest pain PFSH ED 2 PFSH: Medical History Diverticulitis Diverticular disease Calcium urolithiasis Ureteral stone Family History Mother Diabetes Cirrhosis of liver Social History Smoking and tobacco/nicotine status: current every day tobacco/nicotine user cigarettes Packs smoked per day: 1 [ Other cigarette details: started smoking in 2005 until 2012. Quit for 7 years. 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 Known DVT. Unfortunately did not take his anticoagulant and has progressed. Dr. Chambers expressed concern about if the patient was possible embolectomy candidate. Reviewed with Dr. Gallegos he did not feel he was an embolectomy candidate. We also contacted the on-call interventional radiologist at [facility] uploaded the films and he reviewed them. After reviewing he called back and discussed case, he recommended anticoagulation did not feel the patient was a thrombectomy candidate unless some circumstances change. Currently his pulmonary embolism severity score is low consist of his age and sex. His BNP and troponin are normal. Patient has been started on heparin. While in the emergency room his sats were in the around 93 to 95% patient was prophylactically put on oxygen 2 L by nasal cannula. Interventional radiology said if patient condition changes we can contact him again to arrange for transfer if felt appropriate. Medical Records I reviewed the patient's medical records. Lab Data I reviewed the patient's lab results. 02/08/24 10:38 02/08/24 11:08 Laboratory Results WBC 7.09 10^3/uL (3.29-11.43) 02/08/24 10:38 RBC 5.14 10^6/uL (3.85-5.65) 02/08/24 10:38 Hgb 15.60 g/dL (11.27-16.99) 02/08/24 10:38 Hct 45.0 % (37-53) 02/08/24 10:38 MCV 87.5 fl (82-101) 02/08/24 10:38 MCH 30.4 pg (27-33) 02/08/24 10:38 MCHC 34.7 g/dL (30-55) 02/08/24 10:38 RDW 11.9 % (12.1-15.1) L 02/08/24 10:38 Plt Count 231 10^3/cmm (157-399) 02/08/24 10:38 MPV 10.4 fL (7.4-10.4) 02/08/24 10:38 Neut % (Auto) 69.0 % 02/08/24 10:38 Lymph % (Auto) 15.7 % 02/08/24 10:38 [place] % (Auto) 10.3 % 02/08/24 10:38 Eos % (Auto) 4.2 % 02/08/24 10:38 Baso % (Auto) 0.4 % 02/08/24 10:38 Neut # (Auto) 4.89 10^3/uL (1.8-7.7) 02/08/24 10:38 Lymph # (Auto) 1.1 10^3/uL (0.8-4.8) 02/08/24 10:38 [place] # (Auto) 0.7 10^3/uL (0.2-0.9) 02/08/24 10:38 Eos # (Auto) 0.3 10^3/uL (0.0-0.8) 02/08/24 10:38 Baso # (Auto) 0.0 10^3/uL (0.0-0.1) 02/08/24 10:38 Nucleated RBC % (auto) 0 % 02/08/24 10:38 Nucleated RBCs # 0.0 /100WBC 02/08/24 10:38 Sodium 136 mmol/L (136-145) 02/08/24 11:08 Potassium 3.9 mmol/L (3.5-5.1) 02/08/24 11:08 Chloride 102 mmol/L (98-107) 02/08/24 11:08 Carbon Dioxide 23 mmol/L (22-29) 02/08/24 11:08 Anion Gap 14.9 (5-19) 02/08/24 11:08 BUN 11 mg/dL (6-20) 02/08/24 11:08 Creatinine 0.8 mg/dL (0.7-1.2) 02/08/24 11:08 GFR Calculation 109.4 mL/min (90-130) 02/08/24 11:08 Glucose 99 mg/dL (65-115) 02/08/24 11:08 Calculated Osmolality 281 mOsm/kg (285-295) L 02/08/24 11:08 Calcium 9.1 mg/dL (8.5-10.5) 02/08/24 11:08 Total Bilirubin 0.5 mg/dL (0.15-1.2) 02/08/24 11:08 AST 18 U/L (0-40) 02/08/24 11:08 ALT 29 U/L (0-41) 02/08/24 11:08 Alkaline Phosphatase 102 U/L (40-130) 02/08/24 11:08 Troponin T Baseline 7 ng/L (0-15) 02/08/24 11:08 NT-Pro-B Natriuret Pep < 36 pg/mL (0-125) 02/08/24 11:08 Total Protein 8.0 g/dL (6.6-8.7) 02/08/24 11:08 Albumin 3.9 g/dL (3.5-5.2) 02/08/24 11:08 Globulin 4.1 g/dL (1.3-4.6) 02/08/24 11:08 All radiology interpretation(s) finalized by discharge Discharge Plan Discharge Patient Disposition: Admitted As Inpatient Admit Provider: May Hess Clinical Impression: Pulmonary embolism Deep vein thrombosis of lower extremity Qualifiers: Affected thrombotic vein of extremity: unspecified lower extremity distal vein Chronicity: acute Laterality: right Qualified Code(s): I82.4Z1 - Acute embolism and thrombosis of unspecified deep veins of right distal lower extremity Condition: Stable Coding Level of Care Code ED School Director for Stepan Washburn
[2024-02-08 10:45] LABS: Basophils % 0.4 %; Eosinophils # 0.3 10^3/uL (0.0-0.8); Eosinophils % 4.2 %; Lymphocytes # 1.1 10^3/uL (0.8-4.8); Lymphocytes % 15.7 %; Mean Corpuscular HGB Conc 34.7 g/dL (30-55); Mean Corpuscular Hemoglobin 30.4 pg (27-33); Mean Corpuscular Volume 87.5 fl (82-101); Mean Platelet Volume 10.4 fL (7.4-10.4); Monocytes # 0.7 10^3/uL (0.2-0.9); Monocytes % 10.3 %; Neutrophils # 4.89 10^3/uL (1.8-7.7); Nucleated Red Blood Cells % 0 %; Platelet Count 231 10^3/cmm (157-399); Red Blood Count 5.14 10^6/uL (3.85-5.65); Red Cell Distribution Width 11.9 % (12.1-15.1); White Blood Count 7.09 10^3/uL (3.29-11.43)
--- NOTE | 2024-02-08 10:47 | CT_ITS ---
WS: [id number] CTA OF THE CHEST WITH PULMONARY EMBOLISM PROTOCOL TECHNIQUE: High-resolution contrast enhanced CTA of the chest with coronal and sagittal reformatted i mages with pulmonary embolism protocol. MIP images are also reviewed. CLINICAL INFORMATION: Chest pain shortness of breath untreated DVT COMPARISON: CT 01/06/2024 DLP: 577.[address] scans at [facility] use at least one of these dose optimization techniques: automated e xposure control; mA and/or kV adjustment per patient size (includes targeted exams where dose is matc hed to clinical indication); or iterative reconstruction. FINDINGS: Filling defects within the RIGHT distal main pulmonary artery extending into the RIGHT segmental and subsegmental pulmonary arteries compatible with with acute pulmonary embolus. Linear component of anish dging saddle embolus extending into the RIGHT and LEFT main pulmonary arteries. Additional filling de fects in the LEFT upper and lower lobe segmental and subsegmental pulmonary arteries. Suggestion of slight paradoxical bowing of the posterior interventricular septum suggestive of mild R IGHT heart strain. Discrete further evaluated echocardiography. Normal caliber thoracic aorta. No mediastinal or hilar lymphadenopathy. No axillary lymphadenopathy. Tiny esophageal hiatal hernia. Adrenal glands are normal. Lungs are well aerated. Slight atelectasis RIGHT lower lobe. IMPRESSION 1. Acute pulmonary embolus RIGHT greater than LEFT extending into the RIGHT segmental and subsegment al pulmonary arteries. Component of thin bridging saddle embolus extending into the LEFT distal main pulmonary artery with additional LEFT upper and lower lobe segmental and subsegmental pulmonary embol i. 2. Suggestion of mild RIGHT heart strain. Recommend echocardiography Notified Charles Coronado DO at 02/08/2024 12:18 PM .
[2024-02-08 11:39] LABS: Alanine Aminotransferase 29 U/L (0-41); Albumin Level 3.9 g/dL (3.5-5.2); Alkaline Phosphatase 102 U/L (40-130); Anion Gap 14.9 (5-19); Aspartate Amino Transferase 18 U/L (0-40); Blood Urea Nitrogen 11 mg/dL (6-20); Calcium 9.1 mg/dL (8.5-10.5); Carbon Dioxide 23 mmol/L (22-29); Chloride 102 mmol/L (98-107); Creatinine Clr Calc Pharmacy 171.7329; Globulin 4.1 g/dL (1.3-4.6); Glomerular Filtration Rate 109.4 mL/min (90-130); Glucose 99 mg/dL (65-115); Osmolality Calculated 281 mOsm/kg (285-295); Potassium 3.9 mmol/L (3.5-5.1); Sodium 136 mmol/L (136-145); Total Bilirubin 0.5 mg/dL (0.15-1.2)
[2024-02-08] MEDS: iohexol 350 mg/mL 500 mL Btl (per mL) IV (11:43)
--- NOTE | 2024-02-08 12:27 | PC.NURSE ---
PATIENT PLACED ON 2 L NC PER PHYSICIAN ORDER.
[2024-02-08] MEDS: heparin 5,000 unit/mL INJ 1 mL IV ×2 (12:46→20:52)
[2024-02-08] MEDS: heparin drip 25,000 UNIT/500 ML PREMIX 33.0200000000000031 UNIT IV (12:48)
[2024-02-08 13:17] LABS: Troponin(5th) Baseline 7 ng/L (0-15)
--- NOTE | 2024-02-08 13:18 | ECG_ITS ---
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 Measurements Intervals [place] Rate: 73 P: 36 [place]: 180 QRS: 40 QRSD: 118 T: 44 QT: 376 QTc: 415 Interpretive Statements SINUS RHYTHM INCOMPLETE RIGHT BUNDLE BRANCH BLOCK [90+ ms QRS DURATION, TERMINAL R IN V1/V2, 40+ ms S IN I/aVL/V4/V5/V6] Compared to ECG 02/08/2024 10:00:08 No significant changes Electronically Signed On 02-08-2024 23:56:09 CDT by Sherice North M.D. [id number]
[2024-02-08 13:27] LABS: NT Pro B Type Natriuretic Pept < 36 pg/mL (0-125)
[2024-02-08] MEDS: morphine 4 mg/mL SDV 1 mL 2 MG IVP (14:30)
--- NOTE | 2024-02-08 14:41 | USCV_ITS ---
Chris Brad Age: 34 Gender: M : 1990 Exam Date: 02/08/2024 15:47 Ordering Phys: May Hess MD Technologist: CT [place]am [place] [facility] [place] Indication: pe BP: 130 / 89 HR: 70 Rhythm: Sinus Technical Quality: Adequate MEASUREMENTS (Male / Female) Normal Values 2D ECHO LVOT Diameter 2.1 cm LV Ejection Fraction MOD 2C 64.3 % LV Ejection Fraction 2C AL 64.0 % LA Diameter 3.9 cm RA Systolic Volume 4C AL 32.5 ml RA Systolic Volume 4C MOD 30.1 ml Aorta at Sinotubular Diameter 3.2 cm M-MODE LA Ao Ratio MM 1.0 AV Cusp Separation MM 2.5 cm DOPPLER AV Peak Velocity 115.0 cm/s LVOT Peak Velocity 93.0 cm/s AV Area Cont Eq vti 3.3 cm squared AV Area Cont Eq pk 2.9 cm squared MV Peak Velocity 72.0 cm/s MV Area PHT 3.6 cm squared Mitral E to A Ratio 1.4 TV Peak Velocity 98.5 cm/s TR Peak Velocity 115.0 cm/s TR Peak Gradient 5.3 mmHg TV Peak E Velocity 66.0 cm/s Right Atrial Pressure 3.0 mmHg Pulmonary Artery Systolic Pressu 8.3 mmHg PV Peak Velocity 89.0 cm/s FINDINGS Left Ventricle Left ventricle is normal in size. LV systolic function is normal with EF of 60 to 65%. No regional wall motion abnormalities are seen. Right Ventricle Grossly normal in size and function Right Atrium normal in size Left Atrium Normal in size Mitral Valve Structurally normal mitral valve. Mild mitral regurgitation. Aortic Valve Grossly normal. No significant stenosis or regurgitation. Tricuspid Valve Insufficient TR jet to calculate RVSP. Pulmonic Valve Not well visualized Pericardium Grossly normal Aorta Normal in size IVC Appears to be normal CONCLUSIONS Technically limited quality echocardiogram because of poor ultrasonic windows. LV systolic function is normal with EF of 60 to 65%. Grossly normal RV function. Mild mitral regurgitation. No comparison studies are available Paramjit Varghese MD (Electronically Signed) Final Date: 08 February 2024 17:02 S
--- NOTE | 2024-02-08 14:41 | USR_ITS ---
PROCEDURE INFORMATION: Exam: US Duplex Lower Extremity Veins, Bilateral Exam date and time: 02/08/2024 5:18 PM Age: 34 years old Clinical indication: Swelling (edema) of limb; Lower extremity, right; Additional info: Dvt? TECHNIQUE: Imaging protocol: Real-time duplex ultrasound of the bilateral extremities with 2-D buckner scale, color Doppler flow and spectral waveform analysis including responses to compression and other maneuvers (when performed) with image documentation. Complete exam focused on the lower extremity veins. COMPARISON: [place] [id number] 02/02/2024 1:46 PM FINDINGS: Right deep veins: Intraluminal thrombus is present involving common femoral, femoral, popliteal and peroneal veins . These findings are consistent with positive sonographic diagnosis of deep vein thrombosis. Left deep veins: Unremarkable. The common femoral, femoral, proximal profunda femoral and popliteal veins are patent without thrombus. Normal Doppler waveforms. Normal compressibility and/or augmentation response. Superficial veins: Greater saphenous veins at the saphenofemoral junctions are patent bilaterally without thrombus. Soft tissues: Unremarkable. US/[place] [id number] IMPRESSION: 1. Positive for deep vein thrombosis right common femoral, femoral, popliteal, and peroneal veins. 2. Negative for left leg venous thrombosis .
--- NOTE | 2024-02-08 14:52 | PM.HP ---
Providers/Chief Complaint Admitting Physician: May Hess MD Chief Complaint: chest pain History of Present Illness Brad Perez is a 34 year old male With past medical history of diverticulitis, diverticular disease, calcium kidney stones presented to the hospital today with complaint of sudden onset chest pain, tightness, shortness of breath with minimal exertion causing significant dyspnea. He was seen here in the hospital 6 days ago and found to have a DVT. He was started on Eliquis but was unable to fill his medications yet. Denies fever sweats chills, nausea vomiting diarrhea, abdominal pain at this time. Currently on 2 L nasal cannula. States he has a family history of cancer and has grandfather. Lung cancer prostate cancer runs in the family. Parents healthy. He was quite sedentary and then was in the hospital last month and does not recall being on DVT prophylaxis. He says he was hospitalized for 3 to 4 days and then was discharged. Other than that he cannot recall any other risk factors. Denies having COVID in the past for the COVID-vaccine. Denies having a history of any clotting disorders in the family. CTA reviewed which shows 1. Acute pulmonary embolus RIGHT greater than LEFT extending into the RIGHT segmental and subsegmental pulmonary arteries. Component of thin bridging saddle embolus extending into the LEFT distal main pulmonary artery with additional LEFT upper and lower lobe segmental and subsegmental pulmonary emboli. 2. Suggestion of mild RIGHT heart strain. Recommend echocardiography I discussed with cardiology regarding candidacy for potential thrombectomy who recommended that patient likely requires a thrombectomy given the clot burden however radiologist does not believe patient may be a candidate for it. ER doctor discussed case with interventional radiology vascular surgery at [facility]. They stated that they talked with a few of the other providers regarding the case and patient would not be a candidate for thrombectomy at this time and he should be placed on a heparin drip. Will be admitting patient to inpatient care at this time for treatment of pulmonary embolism. BNP less than 36, troponin 7, blood pressure 123/76, 80, 17, 94% 2 L nasal cannula. Medications/Allergies Home Medications Medication Instructions Recorded Confirmed Last Taken Type apixaban 5 mg (74 tabs) tablets in See Rx Instructions PO .COMPLEX 02/08/24 Unknown Rx a dose pack (Eliquis DVT-PE Treat #74 ea 30D Start) Allergies Allergy/AdvReac Type Severity Reaction Status Date / Time codeine Allergy ALGY-Swell Verified 02/08/24 10:12 Lip/Tongue/Throat clams AdvReac Severe ALGY-Difficulty Uncoded 02/08/24 10:12 Breathing PFSH Acute PFSH: Medical History Diverticulitis Diverticular disease Calcium urolithiasis Ureteral stone Family History Mother Diabetes Cirrhosis of liver Social History Smoking and tobacco/nicotine status: current every day tobacco/nicotine user cigarettes Packs smoked per day: 1 [ Other cigarette details: started smoking in 2005 until 2012. Quit for 7 years. 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 HEENT: Normocephalic, atraumatic, EOMI, breathing comfortably. Cardio: Regular rate rhythm, normal S1-S2, Respiratory: Good bilateral air entry, no wheezes no rhonchi appreciated GI: Abdomen soft, nontender, nondistended, bowel sounds + Behavior: Appropriate and cooperative Extremities: no edema, no cyanosis Data 02/08/24 10:38 02/08/24 11:08 A&P Assessment and plan (1) Deep vein thrombosis of lower extremity: Qualifiers: Affected thrombotic vein of extremity: unspecified lower extremity distal vein Chronicity: acute Laterality: right Qualified Code(s): I82.4Z1 - Acute embolism and thrombosis of unspecified deep veins of right distal lower extremity (2) GERD (gastroesophageal reflux disease): (3) Pulmonary embolism: (4) Hypoxia: (5) Supplemental oxygen dependent: Plan #Acute pulmonary embolism, #Recent DVT #Noncompliance to anticoagulation?patient was unable to get medication due to logistical issues. #GERD ? Continue on heparin drip at this time. I would keep on at least for 72 hours. ? Will transition to [facility] at discharge ? If patient worsens clinically or further gets hypoxic may consider transfer to higher level of care at that time. ? Case was discussed with vascular and IR at [facility] by Dr. Coronado ER physician, at this time patient is not a candidate for thrombectomy. ? 1 and 7, BNP less than 36. ? Will trend troponins ? Full CT results as follows:1. Acute pulmonary embolus RIGHT greater than LEFT extending into the RIGHT segmental and subsegmental pulmonary arteries. Component of thin bridging saddle embolus extending into the LEFT distal main pulmonary artery with additional LEFT upper and lower lobe segmental and subsegmental pulmonary emboli. 2. Suggestion of mild RIGHT heart strain. Recommend echocardiography ? Check echocardiogram ? Check venous Dopplers stat ? Patient will need hypercoagulable workup as an outpatient. Will refer to hematology at discharge -Check CEA, AFP, CA 19?9, will check KADEN profile. ? Check factor V Leiden, Antithrombin III Full code DVT prophylaxis: Patient on heparin drip at this time Attestations Medical Necessity Statement*: Continue hospitalization for acute PE. Will cross greater than 72 hours today. Diagnoses Deep vein thrombosis of lower extremity I82.4Z1 Affected thrombotic vein of extremity: unspecified lower extremity distal vein Chronicity: acute Laterality: right GERD (gastroesophageal reflux disease) K21.9 Pulmonary embolism I26.99 Hypoxia R09.02 Supplemental oxygen dependent Z99.81
--- NOTE | 2024-02-08 14:57 | ECG_ITS ---
[facility] Test Date: 2024-02-08 Pat Name: Brad Perez Department: Room: 255 Gender: Male Digital Marketing Associate: : 1990 Requested By: Charles Diaz Order Number: [id number] Andrew MD: Sherice North M.D. Measurements Intervals [place] Rate: 77 P: 30 SD: 163 QRS: 42 QRSD: 113 T: 36 QT: 374 QTc: 425 Interpretive Statements SINUS RHYTHM WITH SINUS ARRHYTHMIA INCOMPLETE RIGHT BUNDLE BRANCH BLOCK [90+ ms QRS DURATION, TERMINAL R IN V1/V2, 40+ ms S IN I/aVL/V4/V5/V6] Compared to ECG 02/08/2024 13:18:01 No significant changes Electronically Signed On 02-09-2024 0:06:15 CDT by Sherice North M.D. [id number]
[2024-02-08] MEDS: pantoprazole 40 mg SDV IVP (15:42)
[2024-02-08] MEDS: sodium chloride 0.9% 1,000 ML 75 ML IV (15:42)
[2024-02-08 15:53] LABS: Troponin 5 2HR 6.65 ng/L (0-15)
[2024-02-08 15:54] LABS: Troponin 5 2HR Delta -0.35 ABS# (0-10)
--- NOTE | 2024-02-08 17:38 | ECG_ITS ---
[facility] Test Date: 2024-02-08 Pat Name: Brad Perez Department: Room: 255 Gender: Male Postpartum Nurse: : 1990 Requested By: Charles Diaz Order Number: [id number] Andrew MD: Sherice North M.D. Measurements Intervals [place] Rate: 85 P: 28 NH: 160 QRS: 37 QRSD: 121 T: 36 QT: 370 QTc: 441 Interpretive Statements SINUS RHYTHM POSSIBLE RIGHT VENTRICULAR CONDUCTION DELAY [RSR (QR) IN V1/V2] Compared to ECG 02/08/2024 15:26:10 Sinus arrhythmia no longer present Incomplete right bundle-branch block no longer present Electronically Signed On 02-09-2024 0:06:54 CDT by Sherice North M.D. [id number]
[2024-02-08 20:34] LABS: Partial Thromboplastin Time 47.9 SECONDS (23.9-36.7)
[2024-02-08 20:45] LABS: Troponin 5 6HR 7.99 ng/L (0-15); Troponin 5 6HR Delta 0.99 ng/L (0-12)
[2024-02-08 20:48] LABS: Carcinoembryonic Antigen 2.8 ng/mL (0.0-4.7); Tumor Marker Alpha Fetoprotein 3.4 ng/mL (0-8.3)
[2024-02-08 20:49] LABS: PSA Screen - Urology 0.23 ng/mL (0-4)
[2024-02-09] VITALS (8 sets, daily range): BP systolic 105–126; BP diastolic 68–85; PULSE 68–93; RESP 15–18; TEMP 36.5–37; O2SAT 94–96
[2024-02-09 00:13] LABS: Cancer Antigen 19 9 9.98 U/mL (0-35)
[2024-02-09 02:55] LABS: Basophils % 0.4 %; Eosinophils # 0.4 10^3/uL (0.0-0.8); Eosinophils % 6.7 %; Hematocrit 41.4 % (37-53); Lymphocytes # 1.6 10^3/uL (0.8-4.8); Lymphocytes % 27.8 %; Mean Corpuscular HGB Conc 34.1 g/dL (30-55); Mean Corpuscular Hemoglobin 29.8 pg (27-33); Mean Corpuscular Volume 87.5 fl (82-101); Monocytes # 0.7 10^3/uL (0.2-0.9); Monocytes % 12.1 %; Neutrophils # 3.02 10^3/uL (1.8-7.7); Neutrophils % 52.8 %; Nucleated Red Blood Cells % 0 %; Platelet Count 191 10^3/cmm (157-399); Red Blood Count 4.73 10^6/uL (3.85-5.65); Red Cell Distribution Width 11.9 % (12.1-15.1); White Blood Count 5.71 10^3/uL (3.29-11.43)
[2024-02-09 03:07] LABS: Partial Thromboplastin Time 65.2 SECONDS (23.9-36.7)
[2024-02-09] MEDS: sodium chloride 0.9% 1,000 ML 75 ML IV ×2 (03:12→16:38)
[2024-02-09] MEDS: heparin drip 25,000 UNIT/500 ML PREMIX 35.3800000000000026 UNIT IV (03:12)
[2024-02-09 03:15] LABS: Alanine Aminotransferase 27 U/L (0-41); Albumin Level 3.3 g/dL (3.5-5.2); Alkaline Phosphatase 98 U/L (40-130); Anion Gap 13.7 (5-19); Aspartate Amino Transferase 18 U/L (0-40); Blood Urea Nitrogen 12 mg/dL (6-20); Calcium 8.8 mg/dL (8.5-10.5); Carbon Dioxide 24 mmol/L (22-29); Chloride 103 mmol/L (98-107); Creatinine Clr Calc Pharmacy 152.6515; Globulin 3.6 g/dL (1.3-4.6); Glomerular Filtration Rate 95.5 mL/min (90-130); Glucose 98 mg/dL (65-115); Magnesium 1.9 mg/dL (1.7-2.3); Osmolality Calculated 284 mOsm/kg (285-295); Potassium 3.7 mmol/L (3.5-5.1); Sodium 137 mmol/L (136-145); Total Bilirubin 0.4 mg/dL (0.15-1.2); Total Protein 6.9 g/dL (6.6-8.7)
[2024-02-09 09:04] LABS: Partial Thromboplastin Time 64.4 SECONDS (23.9-36.7)
--- NOTE | 2024-02-09 12:10 | P.PN_ITS ---
Subjective 2 Subjective: Seen this morning. Patient is on room air. Doing well. Results of venous duplex and CTA are reviewed and shared with the patient. CEA, PSA, AFP, CA 19?9 all within normal range. Vitals/I&O/Wt Last Vital Signs Temp 98.0 F 02/09/24 11:53 Pulse 74 02/09/24 11:53 Resp 15 02/09/24 11:53 BP 126/85 02/09/24 11:53 Pulse Ox 96 02/09/24 11:53 O2 Del Method Room Air 02/09/24 11:53 O2 Flow Rate 2 02/08/24 13:59 02/08/24 02/09/24 02/09/24 22:59 06:59 14:59 Intake Total 389.113 / 353.729 6706.625 / 1472.738 226.432 / 226.432 Balance 389.113 / 641.432 9727.625 / 1472.738 226.432 / 226.432 Weight last 48 hrs Weight 119.89 kg Weight 117.934 kg Physical Exam 2 Narrative: General: Alert oriented x3, patient seen sitting up in bed on 2 L nasal cannula. HEENT: Normocephalic, atraumatic, EOMI, breathing comfortably. Cardio: Regular rate rhythm, normal S1-S2, Respiratory: Good bilateral air entry, no wheezes no rhonchi appreciated GI: Abdomen soft, nontender, nondistended, bowel sounds + Behavior: Appropriate and cooperative Extremities: no edema, no cyanosis Data 02/09/24 02:48 02/09/24 02:48 A&P Assessment and plan (1) Deep vein thrombosis of lower extremity: Qualifiers: Affected thrombotic vein of extremity: unspecified lower extremity distal vein Chronicity: acute Laterality: right Qualified Code(s): I82.4Z1 - Acute embolism and thrombosis of unspecified deep veins of right distal lower extremity (2) GERD (gastroesophageal reflux disease): (3) Pulmonary embolism: (4) Hypoxia: (5) Supplemental oxygen dependent: Plan #Acute pulmonary embolism, #Recent DVT #Noncompliance to anticoagulation?patient was unable to get medication due to logistical issues. #GERD ? Continue on heparin drip at this time. I would keep on at least for 72 hours. ? [facility] ? If patient worsens clinically or further gets hypoxic may consider transfer to higher level of care at that time. ? Case was discussed with vascular and IR at [facility] by Dr. Coronado ER physician, at this time patient is not a candidate for thrombectomy. ? 1 and 7, BNP less than 36. ? Troponins negative. ? Full CT results as follows:1. Acute pulmonary embolus RIGHT greater than LEFT extending into the RIGHT segmental and subsegmental pulmonary arteries. Component of thin bridging saddle embolus extending into the LEFT distal main pulmonary artery with additional LEFT upper and lower lobe segmental and subsegmental pulmonary emboli. 2. Suggestion of mild RIGHT heart strain. Recommend echocardiography ? Check echocardiogram ? Check venous Dopplers stat ? Patient will need hypercoagulable workup as an outpatient. Will refer to hematology at discharge -CEA AFP, CA 19-9, PSA within normal limits. KADEN profile pending. ? Check factor V Leiden, Antithrombin III, pending -Continue heparin drip. Continue to check a PTT every 6 hours as per protocol. Full code DVT prophylaxis: Patient on heparin drip at this time Attestations 2 Medical Necessity Statement*: Continue hospitalization for acute PE. Will cross greater than 72 hours today. Diagnoses Deep vein thrombosis of lower extremity I82.4Z1 Affected thrombotic vein of extremity: unspecified lower extremity distal vein Chronicity: acute Laterality: right GERD (gastroesophageal reflux disease) K21.9 Pulmonary embolism I26.99 Hypoxia R09.02 Supplemental oxygen dependent Z99.81
[2024-02-09] MEDS: pantoprazole 40 mg SDV IVP (14:45)
[2024-02-09] MEDS: heparin drip 25,000 UNIT/500 ML PREMIX 84.9099999999999966 UNIT IV (16:43)
[2024-02-09 18:52] LABS: Partial Thromboplastin Time 58.7 SECONDS (23.9-36.7)
[2024-02-10] VITALS: BP 128/74; PULSE 78; RESP 17; TEMP 36.7; O2SAT 94
[2024-02-10] LABS: Partial Thromboplastin Time 63.6 SECONDS (23.9-36.7)
--- NOTE | 2024-02-10 00:33 | PC.NURSE ---
PTT 63.6, no change to current dose. Verified with Edouard Freeman RN
[2024-02-10 03:36] VITALS: BP 108/74; PULSE 72; RESP 17; TEMP 36.4; O2SAT 96
[2024-02-10 06:00] VITALS: PULSE 62
[2024-02-10] MEDS: sodium chloride 0.9% 1,000 ML 75 ML IV (06:01)
[2024-02-10 06:19] LABS: Basophils % 0.5 %; Eosinophils # 0.3 10^3/uL (0.0-0.8); Eosinophils % 5.2 %; Hematocrit 41.4 % (37-53); Lymphocytes # 1.4 10^3/uL (0.8-4.8); Lymphocytes % 23.3 %; Mean Corpuscular HGB Conc 34.5 g/dL (30-55); Mean Corpuscular Hemoglobin 30.4 pg (27-33); Mean Corpuscular Volume 87.9 fl (82-101); Mean Platelet Volume 9.8 fL (7.4-10.4); Monocytes # 0.6 10^3/uL (0.2-0.9); Monocytes % 9.3 %; Neutrophils # 3.78 10^3/uL (1.8-7.7); Neutrophils % 61.5 %; Nucleated Red Blood Cells % 0 %; Platelet Count 192 10^3/cmm (157-399); Red Blood Count 4.71 10^6/uL (3.85-5.65); Red Cell Distribution Width 11.9 % (12.1-15.1); White Blood Count 6.14 10^3/uL (3.29-11.43)
[2024-02-10 06:33] LABS: Partial Thromboplastin Time 66.5 SECONDS (23.9-36.7)
[2024-02-10 06:40] LABS: Anion Gap 13.9 (5-19); Blood Urea Nitrogen 11 mg/dL (6-20); Calcium 9.1 mg/dL (8.5-10.5); Carbon Dioxide 24 mmol/L (22-29); Chloride 103 mmol/L (98-107); Creatinine Clr Calc Pharmacy 153.5541; Glomerular Filtration Rate 95.5 mL/min (90-130); Glucose 103 mg/dL (65-115); Osmolality Calculated 284 mOsm/kg (285-295); Potassium 3.9 mmol/L (3.5-5.1); Sodium 137 mmol/L (136-145)
[2024-02-10] MEDS: heparin drip 25,000 UNIT/500 ML PREMIX 84.9099999999999966 UNIT IV (06:52)
[2024-02-10 07:15] VITALS: BP 128/76; PULSE 72; RESP 17; O2SAT 96
[2024-02-10 11:20] VITALS: BP 110/74; PULSE 79; RESP 17; TEMP 36.7; O2SAT 94
--- NOTE | 2024-02-10 12:19 | PM.DCS ---
Discharge Providers Date of Admission: 02/08/24 13:47 Date of Discharge: February 10, 2024 Attending Provider at Admission: May Hess MD Attending Provider at Discharge: May Hess MD Diagnoses at Discharge Discharge Diagnosis (1) Deep vein thrombosis of lower extremity: Status: Acute Qualifiers: Affected thrombotic vein of extremity: unspecified lower extremity distal vein Chronicity: acute Laterality: right Qualified Code(s): I82.4Z1 - Acute embolism and thrombosis of unspecified deep veins of right distal lower extremity (2) GERD (gastroesophageal reflux disease): Status: Acute (3) Pulmonary embolism: Status: Acute (4) Hypoxia: Status: Acute (5) Supplemental oxygen dependent: Status: Acute Reason for Visit Reason for Visit: chest pain Hospital Course Hospital Course presented to er with dvt was px xarelto however could not get medicine due to it being expensive, coupon given to him didnt work came back to er with chest pain found to have PE kept on heparin gtt during hospital stay initial workup for hypercoagulability ordered and cancer markers all workup results pending given eliquis starter pack at ok and referral to hematology pt on room air throughout hospitalization, asymptomatic. will be dc home in stable condition advised him to see heme outpatient and remain on AC atleast 9 months unless stated otherwise by [facility] after evaluation pt in agreement Physical Exam Narrative: General: Alert oriented x3, patient seen sitting up on room air HEENT: Normocephalic, atraumatic, EOMI, breathing comfortably. Cardio: Regular rate rhythm, normal S1-S2, Respiratory: Good bilateral air entry, no wheezes no rhonchi appreciated GI: Abdomen soft, nontender, nondistended, bowel sounds + Behavior: Appropriate and cooperative Extremities: no edema, no cyanosis Discharge Data Studies Completed and Pending Completed Studies During Hospitalization Category Date Time Status CT angio chest PE protcl [id number] Stat Cat Scan 02/08/24 10:47 Completed CV. echo complete* [id number] Stat Ultrasound 02/08/24 14:41 Completed US venous duplex lower extremity bilat [CV venous Ultrasound 02/08/24 14:41 [place] [id number]] Stat Pending at discharge Category Date Time Status KADEN Screen w/ Reflex Routine Lab 02/08/24 19:32 Received Antithrombin III Antigen Routine Lab 02/08/24 19:32 Received Factor 5 Leiden Mutation Routine Lab 02/08/24 19:32 Received PROTEIN C, ACTIVITY Routine Lab 02/08/24 19:36 Received PROTEIN S, ACTIVITY Routine Lab 02/08/24 19:32 Received Platelet Count Q2D Lab 02/12/24 04:00 Ordered Radiology Impressions Venous Duplex 02/08/24 14:41 IMPRESSION: 1. Positive for deep vein thrombosis right common femoral, femoral, popliteal, and peroneal veins. 2. Negative for left leg venous thrombosis . ADDENDUM: 02/08/241809 Findings were discussed with May Hess at 02/08/2024 6:08 PM CDT. Laboratory Results WBC 6.14 10^3/uL (3.29-11.43) 02/10/24 05:55 RBC 4.71 10^6/uL (3.85-5.65) 02/10/24 05:55 Hgb 14.30 g/dL (11.27-16.99) 02/10/24 05:55 Hct 41.4 % (37-53) 02/10/24 05:55 MCV 87.9 fl (82-101) 02/10/24 05:55 MCH 30.4 pg (27-33) 02/10/24 05:55 MCHC 34.5 g/dL (30-55) 02/10/24 05:55 RDW 11.9 % (12.1-15.1) L 02/10/24 05:55 Plt Count 192 10^3/cmm (157-399) 02/10/24 05:55 MPV 9.8 fL (7.4-10.4) 02/10/24 05:55 Neut % (Auto) 61.5 % 02/10/24 05:55 Lymph % (Auto) 23.3 % 02/10/24 05:55 Deuel % (Auto) 9.3 % 02/10/24 05:55 Eos % (Auto) 5.2 % 02/10/24 05:55 Baso % (Auto) 0.5 % 02/10/24 05:55 Neut # (Auto) 3.78 10^3/uL (1.8-7.7) 02/10/24 05:55 Lymph # (Auto) 1.4 10^3/uL (0.8-4.8) 02/10/24 05:55 Deuel # (Auto) 0.6 10^3/uL (0.2-0.9) 02/10/24 05:55 Eos # (Auto) 0.3 10^3/uL (0.0-0.8) 02/10/24 05:55 Baso # (Auto) 0.0 10^3/uL (0.0-0.1) 02/10/24 05:55 Nucleated RBC % (auto) 0 % 02/10/24 05:55 Nucleated RBCs # 0.0 /100WBC 02/10/24 05:55 APTT 66.5 SECONDS (23.9-36.7) H 02/10/24 05:55 Sodium 137 mmol/L (136-145) 02/10/24 05:55 Potassium 3.9 mmol/L (3.5-5.1) 02/10/24 05:55 Chloride 103 mmol/L (98-107) 02/10/24 05:55 Carbon Dioxide 24 mmol/L (22-29) 02/10/24 05:55 Anion Gap 13.9 (5-19) 02/10/24 05:55 BUN 11 mg/dL (6-20) 02/10/24 05:55 Creatinine 0.9 mg/dL (0.7-1.2) 02/10/24 05:55 GFR Calculation 95.5 mL/min (90-130) 02/10/24 05:55 Glucose 103 mg/dL (65-115) 02/10/24 05:55 Calculated Osmolality 284 mOsm/kg (285-295) L 02/10/24 05:55 Calcium 9.1 mg/dL (8.5-10.5) 02/10/24 05:55 Magnesium 1.9 mg/dL (1.7-2.3) 02/09/24 02:48 Total Bilirubin 0.4 mg/dL (0.15-1.2) 02/09/24 02:48 AST 18 U/L (0-40) 02/09/24 02:48 ALT 27 U/L (0-41) 02/09/24 02:48 Alkaline Phosphatase 98 U/L (40-130) 02/09/24 02:48 Troponin T Baseline 7 ng/L (0-15) 02/08/24 11:08 Troponin T 120 Minute 6.65 ng/L (0-15) 02/08/24 15:04 Delta Troponin T -0.35 ABS# (0-10) L 02/08/24 15:04 Troponin T Hi Sens 6Hr 7.99 ng/L (0-15) 02/08/24 19:32 Troponin T Hi Sens 6Hr Delta 0.99 ng/L (0-12) 02/08/24 19:32 NT-Pro-B Natriuret Pep < 36 pg/mL (0-125) 02/08/24 11:08 Total Protein 6.9 g/dL (6.6-8.7) 02/09/24 02:48 Albumin 3.3 g/dL (3.5-5.2) L 02/09/24 02:48 Globulin 3.6 g/dL (1.3-4.6) 02/09/24 02:48 Tumor Marker AFP 3.4 ng/mL (0-8.3) 02/08/24 19:32 Carcinoembryonic Ag 2.8 ng/mL (0.0-4.7) 02/08/24 19:32 CA 19-9 Antigen 9.98 U/mL (0-35) 02/08/24 19:32 PSA Screen 0.23 ng/mL (0-4) 02/08/24 19:32 Vitals Last Vital Signs Temp 98.0 F 02/10/24 11:20 Pulse 79 02/10/24 11:20 Resp 17 02/10/24 11:20 BP 110/74 02/10/24 11:20 Pulse Ox 94 02/10/24 11:20 O2 Del Method Room Air 02/10/24 11:20 O2 Flow Rate 2 02/08/24 13:59 Discharge Plan Discharge Patient Disposition: Home Condition: Stable Prescriptions: New Eliquis DVT-PE Treat 30D Start 5 mg (74 tabs) tablets,dose pack See Rx Instructions .ROUTE .COMPLEX Qty: 74 0RF Rx Instructions: orally per package directions Discharge Orders: Discharge Order (Routine); Ordered 02/10/24 Ordered By: May Hess Referrals: Chance Leon MD [Referring] - 02/20/24 9:00 am Bernie Talley MD [Hospitalist] - 1-3 days Discharge Diet: Regular Discharge Activity: Resume usual activity Patient Instructions: Apixaban (By mouth) (Eliquis), Pulmonary Embolism (DC), Hypoxia (ED), Opioid Safety Activity Restrictions/Additional Instructions: Please return to ER if you experience any symptoms including but not limited to worsening chest pain or shortness of breath. Discharge Attestations Time Spent in Discharge Care*: greater than 30 min Quality Metrics Clinical Quality Measures [ No reported AMI, CVA or VTE this stay] Coding Level of Care Code Acute Code for Chg Fwd Diagnoses Deep vein thrombosis of lower extremity I82.4Z1 Affected thrombotic vein of extremity: unspecified lower extremity distal vein Chronicity: acute Laterality: right GERD (gastroesophageal reflux disease) K21.9 Pulmonary embolism I26.99 Hypoxia R09.02 Supplemental oxygen dependent Z99.81
[2024-02-10 14:45] LABS: Anti-Nuclear Antibody Screen NEGATIVE (NEGATIVE)
[2024-02-12 21:50] LABS: PROTEIN S, ACTIVITY 52 % normal (70-150)
[2024-02-14 20:46] LABS: Antithrombin III Antigen 88 % normal (80-120)
[2024-02-15 00:01] LABS: Factor 5 Leiden Mutation NEGATIVE
[2024-02-15 04:56] LABS: PROTEIN C, ACTIVITY 103 % normal (70-180)
== END 2024-02-10 15:45 | disposition home or self-care (01) | DRG 176 ==
LOC: ER 10:36 → MEDSURG 13:48
PROVIDERS: Internal Medicine; Admitting Provider Internal Medicine; Emergency Provider Family Medicine; Visit Provider Internal Medicine
DX: I26.99 Other pulmonary embolism without acute cor pulmonale (principal); I82.411 Acute embolism and thrombosis of right femoral vein; I82.431 Acute embolism and thrombosis of right popliteal vein; I82.451 Acute embolism and thrombosis of right peroneal vein; K21.9 Gastro-esophageal reflux disease without esophagitis; F17.210 Nicotine dependence, cigarettes, uncomplicated; Z91.141 Patient's other noncompliance with medication regimen due to financial hardship; Z80.1 Family history of malignant neoplasm of trachea, bronchus and lung; Z80.42 Family history of malignant neoplasm of prostate
CPT/HCPCS: 36415; 71275; 80048; 80053; 81241; 82105; 82378; 83735; 83880; 84484; 85025; 85301; 85303; 85306; 85730; 86038; 86301; 93005; 93306; 93970; 94664; 96365; 96366; 96375; 99285; C9113; G0103; J1644; J2270; J7030; Q9967